=== PATIENT | male | born 1945 | race Caucasian/White ===

== ENCOUNTER 2022-09-26 08:17 | Outpatient (CLI) | payer OTHER, SELFPAY ==
[2022-09-26 14:42] LABS: Microalbumin Urine 3 mg/dL
[2022-09-26 14:44] LABS: Creatinine Urine 136.8 mg/dL; Microalbumin Creatinine Ratio 20 mg/g (0-30)
[2022-09-26 15:45] LABS: Chloride* 108 mmol/L (96-114)
[2022-09-26 15:46] LABS: Albumin* 3.8 g/dL (3.3-5.0); Potassium* 4.1 mmol/L (3.6-5.1); Sodium* 141 mmol/L (135-149)
[2022-09-26 15:48] LABS: Carbon Dioxide* 26 mmol/L (20-32); Cholesterol* 112 mg/dL (90-199)
[2022-09-26 15:49] LABS: Alanine Aminotransferase* 28 U/L (4-50); Alkaline Phosphatase* 66 U/L (40-150); Aspartate Amino Transferase* 25 U/L (12-35); Bilirubin Total* 0.6 mg/dL (0.1-1.5); Blood Urea Nitrogen* 18 mg/dL (7-30); Calcium* 8.7 mg/dL (8.4-10.6); Creatinine* 0.8 mg/dL (0.5-1.5); Estimated Glomerular Filt Rate 91 ml/min; Glucose* 147 mg/dL (60-115); Total Protein* 6.6 g/dL (6.0-8.3); Triglycerides* 113 mg/dL (40-149)
[2022-09-26 15:50] LABS: HDL Cholesterol* 40 mg/dL (>=40); LDL Cholesterol Calculated 49 mg/dL (<100)
[2022-09-26 16:19] LABS: PSA Screen* 0.69 ng/mL (0.10-4.00)
== END 2022-09-26 08:18 | disposition home or self-care (01) ==
PROVIDERS: PCP Family Medicine; Visit Provider Family Medicine
DX: Z00.00 Encounter for general adult medical examination without abnormal findings (principal); E11.9 Type 2 diabetes mellitus without complications; E78.5 Hyperlipidemia, unspecified; I10 Essential (primary) hypertension
CPT/HCPCS: 80053; 80061; 82043; 82570; 84153

== ENCOUNTER 2022-11-18 14:44 | Outpatient (CLI) | payer OTHER, SELFPAY | END 2022-11-18 14:45 | disposition home or self-care (01) | LOC: RAD 14:46 | PROVIDERS: PCP Family Medicine; Visit Provider Internal Medicine | DX: I51.7 Cardiomegaly (principal) | CPT/HCPCS: 93306 ==

== ENCOUNTER 2022-12-23 13:37 | Outpatient (CLI) | payer OTHER, SELFPAY ==
--- NOTE | 2022-12-23 14:00 | CRLHL7_ITS ---
For Patients: As a result of the Century Cures Act, medical imaging exams and procedure reports are released immediately into your electronic medical record. You may view this report before your referring provider. If you have questions, please contact your health care provider. INDICATION: acute onset right scrotal swelling COMPARISON: none TECHNIQUE: Greco scale imaging was performed of the scrotum. In addition color Doppler and spectral Doppler analysis was performed of the testes. FINDINGS: The testes demonstrate normal arterial and venous blood flow on color Doppler and spectral Doppler analysis. The testes have uniform echogenicity with no evidence of a suspicious mass or area of inflammation. The right testis measures 4.1 x 1.5 x 2.6 cm in size and the left testis measures 3.7 x 1.4 x 2.4 cm. Epididymal head cysts are present bilaterally measuring 1.1 x 0.6 x 1.4 cm on the right and 1.8 x 0.5 x 1.2 cm on the left. No varicocele. Small bilateral hydroceles. IMPRESSION: No testicular torsion or testicular mass. Epididymal head cysts. Small hydroceles. Dictated by Rajinder Ahuja MD @ 12/24/2022 8:51:11 AM (Electronically Signed)
== END 2022-12-23 13:38 | disposition home or self-care (01) ==
PROVIDERS: PCP Family Medicine; Visit Provider Family Medicine
DX: N50.89 Other specified disorders of the male genital organs (principal); N50.3 Cyst of epididymis; N43.3 Hydrocele, unspecified
CPT/HCPCS: 76870; 93976

== ENCOUNTER 2023-03-24 08:44 | Outpatient (CLI) | payer OTHER, SELFPAY | END 2023-03-24 08:45 | disposition home or self-care (01) | LOC: NFLDREF 16:51 | PROVIDERS: PCP Family Medicine; Referring Provider Family Medicine; Visit Provider Family Medicine | DX: Z00.00 Encounter for general adult medical examination without abnormal findings (principal); I10 Essential (primary) hypertension; E11.9 Type 2 diabetes mellitus without complications | CPT/HCPCS: 80048 ==

== ENCOUNTER 2023-10-14 08:05 | Outpatient (CLI) | payer OTHER, SELFPAY | END 2023-10-14 08:06 | disposition home or self-care (01) | LOC: LKVREF 08:06 | PROVIDERS: PCP Family Medicine; Visit Provider Family Medicine | DX: Z00.00 Encounter for general adult medical examination without abnormal findings (principal); E11.9 Type 2 diabetes mellitus without complications; I10 Essential (primary) hypertension; E78.5 Hyperlipidemia, unspecified; Z12.5 Encounter for screening for malignant neoplasm of prostate; R73.09 Other abnormal glucose | CPT/HCPCS: 80053; 80061; 82043; 82570; G0103 ==

== ENCOUNTER 2024-04-02 07:58 | Emergency (ER) | payer OTHER, SELFPAY ==
[2024-04-02] VITALS (44 sets, daily range): BP systolic 129–167; BP diastolic 75–106; PULSE 56–68; RESP 18–20; TEMP 36.4; O2SAT 91–96; BMI 32.3
--- OUTSIDE RECORDS SUMMARY | 2024-04-02 08:53 | XMS_ITS | Referral Summary ---
Author Organization [place] Address [address] [place] [address] Care Team Providers Care Alumina Plant Supervisor Name Role Phone Ritchie Mcfadden MD Primary Care Provider [phone] Allergies No known active allergies Medications Medication Sig Dispensed Refills Start Date End Date Status ASPIRIN PO Take 81 mg by mouth At Bedtime Active timolol (TIMOPTIC) 0.5 % ophthalmic solution Place 1 drop Into the left eye daily Active AMLODIPINE BESYLATE PO Take 10 mg by mouth daily Active Carvedilol (COREG PO) Take 3.125 mg by mouth 2 times daily Active SIMVASTATIN PO Take 20 mg by mouth At Bedtime Active LOSARTAN POTASSIUM PO Take 100 mg by mouth At Bedtime Active FINASTERIDE PO Take 5 mg by mouth At Bedtime Active blood glucose calibration (NO BRAND SPECIFIED) solutionIndications:T ype 2 diabetes mellitus with hyperosmolarity without coma, unspecified termite helper insulin use status Use to calibrate blood glucose monitor as directed. 1 each 02/20/2018 Active blood glucose monitoring (NO BRAND SPECIFIED) meter device kitIndications:Type 2 diabetes mellitus with hyperosmolarity without coma, unspecified mcc insulin use status Use to test blood sugar 4 times daily or as directed. 1 kit 02/20/2018 Active blood glucose (NO BRAND SPECIFIED) lancets standardIndications:T ype 2 diabetes mellitus with hyperosmolarity without coma, unspecified mcc insulin use status Use to test blood sugar 4 times daily or as directed. 100 each 11 02/20/2018 Active blood glucose monitoring (NO BRAND SPECIFIED) test stripIndications:Type 2 diabetes mellitus with hyperosmolarity without coma, unspecified mcc insulin use status Use to test blood sugars 4 times daily or as directed 100 strip 1 02/20/2018 Active hydrochlorothiazide (MICROZIDE) 12.5 MG capsuleIndications:Be nign essential hypertension Take 1 capsule (12.5 mg) by mouth daily 30 capsule 02/21/2018 Active insulin glargine (LANTUS SOLOSTAR) 100 UNIT/ML penIndications:Type 2 diabetes mellitus with hyperosmolarity without coma, unspecified mcc insulin use status Inject 15 Units Subcutaneous At Bedtime 3 mL 02/21/2018 Active Active Problems Problem Noted Date Diagnosed Date Dizziness 02/20/2018 Social History Tobacco Use Types Packs/Day Years Used Date Smoking Tobacco: Never Alcohol Use Standard Drinks/Week Comments No 0 (1 standard drink = 0.6 oz pur e alcohol) Adolescent Education Answer Date Record ed Getting School Help Needed Not on file 07/27 Sex and Gender Information Value Date Recorded Sex Assigned at Not on file Gender Identity Not on file Sexual Orientation Not on file Last Filed Vital Signs Vital Sign Reading Time Taken Comments Blood Pressure 166/81 02/21/2018 9:05 AM CDT Pulse 72 02/20/2018 11:36 AM CDT Temperature 36.3 ??C (97.3 ??F) 02/21/2018 9:05 AM CD T Respiratory Rate 14 02/21/2018 9:05 AM CDT Oxygen Saturation 95% 02/21/2018 9:05 AM CDT Inhaled Oxygen Concentration - - Weight 113.3 kg (249 lb 11.2 oz) 02/20/2018 5:26 PM CDT Height 182.9 cm (6') 02/20/2018 5:26 PM CDT Body Mass Index 33.87 02/20/2018 5:26 PM CDT Plan of Treatment Not on file Procedures Procedure Name Priority Date/Time Associated Diagnosis Comments BASIC METABOLIC PANEL Routine 02/21/2018 6:12 AM CDT Type 2 diabetes mellitus with hyperosmolarity without coma, unspecified termite helper insulin use status (H) COLONOSCOPY - HIM SCAN Routine 11/18/2016 from Last 3 Months or Most Recently Relevant to Health Maintenance Results * (ABNORMAL) Basic metabolic panel (02/21/2018 6:12 AM CDT) Sodium 141 133 - 144 mmol/L 02/21/2018 6:45 AM CDT [facility] Potassium 3.6 3.4 - 5.3 mmol/L 02/21/2018 6:45 AM T [facility] Chloride 109 94 - 109 mmol/L 02/21/2018 6:[address] [facility] Carbon Dioxide 26 20 - 32 mmol/L 02/21/2018 6:[address] [facility] Anion Gap 6 3 - 14 mmol/L 02/21/2018 6:[address] [facility] Glucose 188(H) 70 - 99 mg/dL 02/21/2018 6:45 AM T [facility] Urea Nitrogen 14 7 - 30 mg/dL 02/21/2018 6:[address] [facility] Creatinine 0.86 0.66 - 1.25 mg/dL 02/21/2018 6:[address] [facility] GFR Estimate 88 >60 mL/min/1.7 m2 02/21/2018 6:[address] [facility] Comment:Non GFR Calc GFR Estimate If Black >90 >60 mL/min/1.7 m2 02/21/2018 6:[address] [facility] Comment: GFR Calc Calcium 8.1(L) 8.5 - 10.1 mg/dL 02/21/2018 6:[address] [facility] Blood specimen (specimen) 02/21/2018 6:12 AM CDT 02/21/2018 6:20 AM CDT Isabella Chavez MD LAB - BLOOD ORDERABL ES [facility] [address], [place] [address], [facility] [phone] * Colonoscopy - HIM Scan (11/18/2016) Narrative Chauncey Patiño - 11/18/[address] [facility] PROGRESS NOTE/CLINIC NOTE Provider Outside PROCEDURES from Last 3 Months or Most Recently Relevant to Health Maintenance Advance Directives For more information, please contact: [phone] * Full Code (Latest Code Status on File) Date Activated Date Inactivated Comments 02/20/2018 5:38 PM 02/21/2018 7:58 PM Care Teams Alumina Plant Supervisor Relationship Specialty Start Date End Date Ritchie Mcfadden MD PCP - General Family Practice 02/21/18
--- OUTSIDE RECORDS SUMMARY | 2024-04-02 08:53 | XMS_ITS | Data Portability ---
Author Organization [facility], [facility] Address [address] [place] [address] Care Team Providers Care Javascript Engineer Name Role Phone MIRIAM MCFADDEN Primary Care Provider Assessment Encounter Date Assessment Date Assessment LastModified by Organization Details LastModified Time 04/22/2023 04/22/2023 77 year old male with small bilateral hydroceles and bilateral epididymal cysts. [email or web address] Not available 04/22/2023 13:50:26 Plan of Treatment Reminders Order Date Submit Date Provider Last Modified By Organization Details Last Modified Time Details Appointments None recorded. Lab urinalysis , dipstick 2022 023 [facility], [address], [address], [place], [address], 17:21:01 Referral None recorded. Procedures None recorded. Surgeries None recorded. Imaging None recorded. Medication Orders None recorded. Patient TargetsNo targets recorded. Patient Instructions Encounter Date Encounter Id Patient Instructions Last Modified By Organization Details Last Modified Time 04/22/2023 [id number] Hydroceles: We discussed the natural history of a non-communicating hydrocele. We discussed options for management including observation, percutaneous aspiration, and surgical removal. We did touch on percutaneous aspiration which is a reasonable option for some men with competing co-morbidities who do not wish to have formal removal. This includes a small risk for bleeding and infection, but an almost assured risk of recurrence within a few months. We covered the risks of hydrocelectomy including bleeding with scrotal hematoma formation, infection, wound complications, injury to surrounding structures (spermatic vessels/vas deferens/epididymi s/testis), anesthetic risks (DVT/PE/CVA/SD), and recurrence. He will plan to monitor for now but if he changes his mind he will contact me to schedule hydrocelectomy. [email or web address] Not available 04/22/2023 14:25:15 Reason for Referral None Reported. Results Created Date Observation Date Name Description Value Unit Range Abnormal Flag LastModifiedBy Organization Detail LastModifiedTime 04/22/20 23 04/22/2023 UA WITHO UT MICRO - CS URISC AN blood - uriscan NEGATI VE negati ve Not Available [facility] [address] [facility] [address], [place], [address], 04/22/2023 17:21:01 04/22/20 23 04/22/2023 UA WITHO UT MICRO - CS URISC AN bilirubin - uriscan NEGATI VE mg/dL negati ve Not Available [facility] [address] [facility] [address], [place], [address], 04/22/2023 17:21:01 04/22/20 23 04/22/2023 UA WITHO UT MICRO - CS URISC AN urobilinogen - uriscan NORMAL mg/dL normal Not Available [facility] [address] [facility] [address], [place], [address], 04/22/2023 17:21:01 04/22/20 23 04/22/2023 UA WITHO UT MICRO - CS URISC AN ketones - uriscan 5 mg/dL negati ve abnormal Not Available [facility] [address] [facility] [address], [place], [address], 04/22/2023 17:21:01 04/22/20 23 04/22/2023 UA WITHO UT MICRO - CS URISC AN protein - uriscan NEGATI VE mg/dL negati ve Not Available [facility] [address] [facility] [address], [place], [address], 04/22/2023 17:21:01 04/22/20 23 04/22/2023 UA WITHO UT MICRO - CS URISC AN nitrites - uriscan NEGATI VE negati ve Not Available [facility] [address] [facility] [address], [place], [address], 04/22/2023 17:21:01 04/22/20 23 04/22/2023 UA WITHO UT MICRO - CS URISC AN glucose - uriscan NEGATI VE mg/dL negati ve Not Available [facility] [address] [facility] [address], [place], [address], 04/22/2023 17:21:01 04/22/20 23 04/22/2023 UA WITHO UT MICRO - CS URISC AN pH - uriscan 5.00 5.00-9 .00 Not Available [facility] [address] [facility] [address], [place], [address], 04/22/2023 17:21:01 04/22/20 23 04/22/2023 UA WITHO UT MICRO - CS URISC AN sp. gravity - uriscan 1.03 1.01-1 .03 Not Available [facility] [address] [place] [address], [place], [address], 04/22/2023 17:21:01 04/22/20 23 04/22/2023 UA WITHO UT MICRO - CS URISC AN leukocytes - uriscan NEGATI VE negati ve Not Available [facility] [address] [place] [address], [place], [address], 04/22/2023 17:21:01 04/22/20 23 04/22/2023 UA WITHO UT MICRO - CS URISC AN color - uriscan YELLOW lt. yellow ;yello w Not Available [facility] [address] [place] [address], [place], [address], 04/22/2023 17:21:01 04/22/20 23 04/22/2023 UA WITHO UT MICRO - CS URISC AN clarity - uriscan VERY CLOUDY clear abnormal Not Available [facility] [address] [facility] [address], [place], [address], 04/22/2023 17:21:01 04/22/20 23 04/22/2023 UA WITHO UT MICRO - CS URISC AN total urine volume (mL) 20 /mL Not Available [facility] [address], [place], [address], 04/22/2023 17:21:01 Result Notes None recorded. Medical Equipment None Reported. Medications Name Sig Start Date Stop Date Status Note LastModified by Organization Details LastModified Time carvedilol 6.25 mg tablet TAKE 1 TABLET BY MOUTH TWICE DAILY . APPOINTMENT REQUIRED FOR FUTURE REFILLS active Not Available Not Available No t Available amlodipine 10 mg tablet TAKE 1/2 (ONE-HALF) TABLET BY MOUTH ONCE DAILY active Not Available Not Available No t Available nystatin 100,000 unit/gram topical cream APPLY CREAM TOPICALLY 2 TO 3 TIMES A DAY NEEDED FOR RASH active Not Available Not Available No t Available timolol maleate 0.5 % eye drops INSTILL 1 DROP INTO LEFT EYE IN THE MORNING active Not Available Not Available Not Available losartan 100 mg tablet TAKE 1 TABLET BY MOUTH ONCE DAILY active Not Available Not Available No t Available metformin ER 500 mg tablet,exten ded release 24 hr TAKE 1 TABLET BY MOUTH ONCE DAILY active Not Available Not Available No t Available finasteride 5 mg tablet TAKE 1 TABLET BY MOUTH ONCE DAILY active Not Available Not Available No t Available rosuvastatin 10 mg tablet TAKE 1 TABLET BY MOUTH ONCE DAILY active Not Available Not Available No t Available UltiCare Pen Needle 31 gauge x 5/16 USE TO TEST ONCE DAILY active Not Available Not Available N ot Available Lantus Solostar U-100 Insulin 100 unit/mL (3 mL) subcutaneous pen INJECT 8 UNITS SUBCUTANEOU SLY IN THE EVENING active Not Available Not Available No t Available Vitals None Recorded Social History None recorded. Functional Status None recorded. Mental Status None recorded. Family History Nothing Reported. Medical History No medical history recorded. Immunizations Vaccine Type Date Status Provider Name and Address Organization Details Recorded Time Influenza, recombinant, quadrivalent, PF 07/15/2019 completed [place] Ne[facility] 05/07/2023 15:22:36 Influenza, high-dose, quadrivalent, PF 07/15/2022 completed [place] [facility] 05/07/2023 15:22:36 Influenza, high-dose, quadrivalent, PF 07/26/2020 completed Rachael Ramirez null, [facility] 05/07/2023 15:22:36 Influenza, high-dose, quadrivalent, PF 07/30/2021 completed Rachael Ramirez null, [facility] 05/07/2023 15:22:36 COVID-19, mRNA, LNP-S, PF, 30 mcg/0.3 mL dose 11/09/2020 completed Rachael Ramirez null, [facility] 05/07/2023 15:22:36 COVID-19, mRNA, LNP-S, PF, 30 mcg/0.3 mL dose 11/30/2020 completed Rachael Ramirez null, [facility] 05/07/2023 15:22:36 COVID-19, mRNA, LNP-S, PF, 30 mcg/0.3 mL dose 07/17/2021 completed Rachael Charlesand null, [facility] 05/07/2023 15:22:36 COVID-19, mRNA, LNP-S, PF, 30 mcg/0.3 mL dose, fina-sucrose 02/06/2022 completed Rachael Ramirez null, [facility] 05/07/2023 15:22:36 COVID-19, mRNA, LNP-S, bivalent, PF, 30 mcg/0.3 mL dose 03/28/2023 completed Rachael Ramirez null, [facility] 05/07/2023 15:22:36 COVID-19, mRNA, LNP-S, bivalent, PF, 30 mcg/0.3 mL dose 07/15/2022 completed Rachael Ramirez null, [facility] 05/07/2023 15:22:36 pneumococcal polysaccharide PPV23 06/01/2018 completed Rachael Ramirez null, [facility] 05/07/2023 15:22:36 Tdap 11/04/2017 completed Rachael Ramirez null, [facility] 05/07/2023 15:22:36 Pneumococcal conjugate PCV 13 03/23/2015 completed Rachael Ramirez null, [facility] 05/07/2023 15:22:36 Influenza, high-dose, trivalent, PF 06/30/2017 completed Rachael blood [facility] 05/07/2023 15:22:36 Influenza, high-dose, trivalent, PF 07/21/2018 completed Rachael blood [facility] 05/07/2023 15:22:36 Influenza, high-dose, trivalent, PF 08/03/2015 completed Rachael blood [facility] 05/07/2023 15:22:36 Influenza, high-dose, trivalent, PF 08/27/2016 completed Rachael blood [facility] 05/07/2023 15:22:36 Past Encounters Encounter ID Performer Location Encounter Start Date Encounter Closed Date Diagnosis/Indication Diagnosis SNOMED-CT Code [id number] Tera Amin MD [facility] [address] [place] [address] 04/22/2023 08:40:17 04/22/2023 14:44:26 Hydrocele of testis [id number] Cyst of epididymis 29241 002 Health Concerns Section Related Observation LastModified by Organization Detai ls LastModified Time None Recorded Concern Status LastModified by Organization Details LastModified Time None Recorded Advance Directives Directive None Recorded Payers Encounter Date Sequence Insurance Name Policy Number Policy Hough Covered Member ID Hough Member ID Guarantor Name 04/22/2023 1 [employer] - GOLD CHOICE (MEDICARE REPLACEMENT PPO) [id number] Adryan Gamble [id number] Adryan Gamble Notes Date Note Type Note Provider Name and Address Organization Details Recorded Time 04/22/2023 text/html HPI Notes: This is a 77 year old male who is referred by Dr. Mcfadden for the evaluation and management of scrotal swelling. In December of 2022 he developed new onset right sided scrotal swelling. He underwent a scrotal ultrasound on 12/23/2022 which revealed small bilateral hydroceles and bilateral epididymal cysts measuring up to 1.4 cm on the right and 1.8 cm on the left. He isn't overtly bothered by this. He actually feels this has gotten a bit smaller. Tera Amin MD [address] [place] [address],[address], [place], [address], [facility] 04/22/2023 14:25:21
--- OUTSIDE RECORDS SUMMARY | 2024-04-02 08:53 | XMS_ITS | Clinical Summary ---
Author Organization [place] Address [address] [place] [address] Care Team Providers Care Stitch Bonding Machine Tender Helper Name Role Phone Ritchie Mcfadden MD Primary Care Provider [phone] Allergies No known active allergies Medications Medication [...] diabetes mellitus with hyperosmolarity without coma, unspecified ferry terminal supervisor insulin use status Use to calibrate blood glucose monitor as directed. 1 each 02/20/2018 Active blood glucose monitoring (NO BRAND SPECIFIED) meter device kitIndications:Type 2 diabetes mellitus with hyperosmolarity without coma, unspecified jail insulin use status Use to test blood sugar 4 times daily or as directed. 1 kit 02/20/2018 Active blood glucose (NO BRAND SPECIFIED) lancets standardIndications:T ype 2 diabetes mellitus with hyperosmolarity without coma, unspecified jail insulin use status Use to test blood sugar 4 times daily or as directed. 100 each 11 02/20/2018 Active blood glucose monitoring (NO BRAND SPECIFIED) test stripIndications:Type 2 diabetes mellitus with hyperosmolarity without coma, unspecified jail insulin use status Use to test blood sugars 4 times daily or as directed 100 strip 1 02/20/2018 Active hydrochlorothiazide (MICROZIDE) 12.5 MG capsuleIndications:Be nign essential hypertension Take 1 capsule (12.5 mg) by mouth daily 30 capsule 02/21/2018 Active insulin glargine (LANTUS SOLOSTAR) 100 UNIT/ML penIndications:Type 2 diabetes mellitus with hyperosmolarity without coma, unspecified jail insulin use status Inject 15 Units Subcutaneous [...] 02/20/2018 5:26 PM CDT Plan of Treatment Health Maintenance Due Date Last Done Comments ADVANCE CARE PLANNING 1945 ANNUAL REVIEW OF HM ORDERS 1945 LIPID 1945 HEPATITIS C SCREENING 1963 DTAP/TDAP/TD IMMUNIZATION (1 - Tdap) 1970 ZOSTER IMMUNIZATION (1 of 2) 1995 RSV VACCINE ( & 60+) (1 - 1-dose 60+ series) 2005 FALL RISK ASSESSMENT 2010 MEDICARE ANNUAL WELLNESS VISIT 2010 Pneumococcal Vaccine: 65+ Years (2 of 2 - PPSV23 or PCV20) 03/23/2016 03/23/2015 GLUCOSE 02/21/2021 02/21/2018, 02/10, 02/21/2018, Additional history exists COVID-19 Vaccine ( season) 2023 PHQ-2 (once per calendar year) 2023 INFLUENZA VACCINE (Season Ended) 2024 06/30/2017, 08/27/2016, 08/03/2015 COLONOSCOPY Discontinued 11/18/2016, 04/2011, 01/19/2007 COLORECTAL CANCER SCREENING Discontinued CT COLONOGRAPHY Discontinued FIT Discontinued FLEX SIG Discontinued HPV IMMUNIZATION Aged Out No longer e ligible based on patient's age to complete this topic IPV IMMUNIZATION Aged Out No longer e ligible based on patient's age to complete this topic MENINGITIS IMMUNIZATION Aged Out No l onger eligible based on patient's age to complete this topic RSV MONOCLONAL ANTIBODY Aged Out No l onger eligible based on patient's age to complete this topic sDNA (Cologuard) Discontinued Procedures Procedure Name Priority Date/Time Associated Diagnosis Comments BASIC METABOLIC PANEL Routine 02/21/2018 6:12 AM CDT Type 2 diabetes mellitus with hyperosmolarity without coma, unspecified jail insulin use status (H) COLONOSCOPY - HIM SCAN Routine 11/18/2016 from Last 3 Months or Most Recently Relevant to Health Maintenance Results * (ABNORMAL) Basic metabolic panel (02/21/2018 6:12 AM CDT) Sodium 141 133 - 144 mmol/L 02/21/2018 6:45 AM [facility] Potassium 3.6 3.4 - 5.3 mmol/L 02/21/2018 6:45 AM [facility] Chloride 109 94 - 109 mmol/L 02/21/2018 6:45 AM [facility] Carbon Dioxide 26 20 - 32 mmol/L 02/21/2018 6:45 AM [facility] Anion Gap 6 3 - 14 mmol/L 02/21/2018 6:45 AM [facility] Glucose 188(H) 70 - 99 mg/dL 02/21/2018 6:45 AM [facility] Urea Nitrogen 14 7 - 30 mg/dL 02/21/2018 6:45 AM CDT [facility] Creatinine 0.86 0.66 - 1.25 mg/dL 02/21/2018 6:45 AM CDT [facility] GFR Estimate 88 >60 mL/min/1.7 m2 02/21/2018 6:45 AM CDT [facility] Comment:Non GFR Calc GFR Estimate If Black >90 >60 mL/min/1.7 m2 02/21/2018 6:45 AM CDT [facility] Comment: GFR Calc Calcium 8.1(L) 8.5 - 10.1 mg/dL 02/21/2018 6:45 AM CDT [facility] Blood specimen (specimen) 02/21/2018 6:12 AM CDT 02/21/2018 6:20 AM CDT Isabella Chavez MD LAB - BLOOD ORDERABL ES [facility] [address] [place] [address] [address], [facility] [phone] * Colonoscopy - HIM Scan (11/18/2016) Narrative Chauncey Patiño - 11/18/2016 [facility] PROGRESS NOTE/CLINIC NOTE Provider Outside PROCEDURES from Last 3 Months or Most Recently Relevant to Health Maintenance Advance Directives For more information, please contact: [phone] * Full Code (Latest Code Status on File) Date Activated Date Inactivated Comments 02/20/2018 5:38 PM 02/21/2018 7:58 PM Care Teams Stitch Bonding Machine Tender Helper Relationship Specialty Start Date End Date Ritchie Mcfadden MD PCP - General Family Practice 02/21/18
--- OUTSIDE RECORDS SUMMARY | 2024-04-02 08:53 | XMS_ITS | Clinical Summary ---
Author Organization [facility] Address [place], [place] [address] Care Team Providers Care Head Resident Name Role Phone Ritchie Mcfadden MD Primary Care Provider Allergies No known active allergies Medications Medication Sig Dispensed Refills Start Date End Date Status aspirin (ECOTRIN) 81 mg enteric coated tabletIndications:Hy pertension Take 1 tablet by mouth once daily with a meal. 0 05/12/2019 Active losartan (COZAAR) 100 mg tabletIndications:Hy pertension Take 1 tablet by mouth once daily. 0 05/12/2019 Active carvediloL (COREG) 6.25 mg tabletIndications:Hy pertension Take 1.5 tablets by mouth 2 times daily with meals. 270 tablet 05/26/2020 Active amLODIPine (NORVASC) 10 mg tabletIndications:Hy pertension Take 0.5 Tablets (5 mg) by mouth once daily. 0 12/13/2022 Active Active Problems Problem Noted Date Diagnosed Date History of colon polyps 11/18/2016 Overview: Colonoscopy 11/2016 polyp repeat in 5 years Immunizations Name Administration Dates Next Due COVID-19 vaccine ([employer] NTUCT Coatings 30mcg/0.3mL) DONALD VAZQUEZ 07/17/2021,11/30/2020,11/09/2020 Social History Tobacco Use Types Packs/Day Years Used Date Smoking Tobacco: Never Assessed Social Connections Answer Date Recorded Frequency of Communication with Friends and Fami ly Not on file 11/23/2021 Financial Resource Strain Answer Date R ecorded Difficulty of Paying Living Expenses Not on file 11/23/2021 Difficulty of Paying Living Expenses Not on file 11/23/2021 Sex and Gender Information Value Date Recorded Sex Assigned at Not on file Gender Identity Not on file Sexual Orientation Not on file Obstetrics History Plan of Treatment Health Maintenance Due Date Last Done Comments Tdap 1956 Depression screening for age 12+ 1957 BMI (ht and wt on same day) for age 18+ 1963 Hepatitis C screening for ag e 18-79 1963 Tetanus booster 1965 Zoster (shingles) series for age 50+ (1 of 2) 1995 Medicare Wellness for age 65+ 2010 Pneumococcal series for age 65+ (1 of 1 - PCV) 2010 COVID-19 vaccine series (2022- season) 2023 03/28/2023, 07/15/2022, 02/06/2022, Additional history exists Influenza for age 65+ 2024 Care Teams Head Resident Relationship Specialty Start Date End Date Ritchie Mcfadden MD [id number] [place] [address] PCP - General Family Practice 09/17/21
[2024-04-02 08:54] LABS: Basophils Absolute Auto 0.02 K/uL (0.00-0.30); Basophils Percent Auto 0.3 % (0.0-3.0); Eosinophils Percent Auto 1.4 % (0.0-7.0); Hematocrit 48.3 % (37.0-53.0); Hemoglobin* 15.7 gm/dL (13.5-17.5); Immature Granulocytes Abs Auto 0.01 K/uL (0.00-0.30); Immature Granulocytes Pct Auto 0.1 %; Lymphocytes Absolute Auto 1.76 K/uL (0.90-2.90); Lymphocytes Percent Auto 24.2 % (20-44); Mean Corpuscular HGB Conc 33 gm/dL (32-36); Mean Corpuscular Hemoglobin 29 pg (26-34); Mean Corpuscular Volume 89 fL (80-100); Monocytes Percent Auto 8.7 % (0.0-11.0); Neutrophils Absolute Auto 4.76 K/uL (1.7-7.0); Neutrophils Percent Auto 65.3 % (42.0-72.0); Platelet Count* 202 K/uL (140-440); RDW Coefficient of Variation % 12.6 % (11.5-15.5); Red Blood Count 5.43 m/uL (4.30-5.90); White Blood Count* 7.28 K/uL (4.50-11.00)
[2024-04-02 09:04] LABS: Slide Review Reflex No
[2024-04-02 09:05] LABS: Albumin* 3.9 g/dL (3.3-5.0); Chloride* 102 mmol/L (96-114)
[2024-04-02 09:06] LABS: Potassium* 3.8 mmol/L (3.6-5.1); Sodium* 137 mmol/L (135-149)
[2024-04-02 09:08] LABS: Anion Gap 6 mEq/L (7-15); Aspartate Amino Transferase* 29 U/L (12-35); Bilirubin Total* 0.8 mg/dL (0.1-1.5); Carbon Dioxide* 29 mmol/L (20-32); Creatinine* 0.8 mg/dL (0.5-1.5); Est. Creatinine Clearance* 66.82; Estimated Glomerular Filt Rate 91 ml/min
[2024-04-02 09:09] LABS: Alanine Aminotransferase* 36 U/L (4-50); Alkaline Phosphatase* 63 U/L (40-150); Blood Urea Nitrogen* 17 mg/dL (7-30); Glucose* 339 mg/dL (60-115); Magnesium* 2.1 mg/dL (1.5-2.6); Total Protein* 6.9 g/dL (6.0-8.3)
[2024-04-02 09:19] LABS: D Dimer Quantitative* < 0.27 ug/ml (0.00-0.50)
[2024-04-02 09:27] LABS: NT Pro B Type NatriureticPept* 345 pg/mL; Troponin I* 0.26 ng/mL (0.01-0.04)
[2024-04-02] MEDS: NITROGLYCERIN 0.4 MG TAB.SUBL SUBLINGUAL ×2 (09:29→09:41)
--- NOTE | 2024-04-02 09:30 | CRLHL7_ITS ---
For Patients: As a result of the Century Cures Act, medical imaging exams and procedure reports are released immediately into your electronic medical record. You may view this report before your referring provider. If you have questions, please contact your health care provider. INDICATION: Left-sided chest pain. Concern for pneumonia. COMPARISON: None TECHNIQUE: : CT examination of the chest was performed without contrast.Thin axial sections were obtained from the thoracic inlet through the lung bases. Please note that all CT scans at this facility use dose modulation, iterative reconstruction, and/or weight-based dosing when appropriate to reduce radiation dose to as low as reasonably achievable. FINDINGS: : HEART and MEDIASTINUM: The heart size is normal. There is no mediastinal or hilar adenopathy or mass. There is no pericardial effusion.Atherosclerotic vascular calcifications are noted including the coronary arteries. LUNGS and PLEURAL SPACES: Primarily linear opacities are identified. These certainly basilar distribution and probably related to atelectasis or scarring. No focal consolidation, infiltrate or mass. A few tiny nodules are identified. The largest is at the medial right base. This is best seen on axial image 44 and sagittal image 72 measuring 5.5 millimeters.According to Fleischner society criteria, a 12 month follow-up noncontrast chest CT should be considered. VISUALIZED UPPER ABDOMEN: The limited visualized upper abdominal structures appear normal. OSSEOUS STRUCTURES: Age-appropriate appearance. No acute fracture or destructive process. TUBES and LINES: None. IMPRESSION: 1. Primarily linear opacities are identified. These are in a basilar distribution and consistent with atelectasis or scarring. No focal consolidation, infiltrate or mass. No pleural effusion or pneumothorax. No chest wall abnormality. 2. There is a 5.5 millimeter nodule. Consider a 12 month follow-up noncontrast chest CT as per Fleischner society protocol. 3. Other nonacute appearing findings as above Please note that all CT scans at this facility use dose modulation, iterative reconstruction, and/or weight-based dosing when appropriate to reduce radiation dose to as low as reasonably achievable. Dictated by Krishna Aparicio MD @ 04/02/2024 10:22:23 AM (Electronically Signed)
[2024-04-02 09:36] LABS: PCR FLU A Negative PCR FLU A (Negative); PCR FLU B Negative PCR FLU B (Negative); PCR RSV Negative PCR RSV (Negative); SARS PCR* Negative SARS-CoV-2 (Negative)
--- NOTE | 2024-04-02 09:41 | ED.CHESTPAIN ---
HPI - Chest Pain General Date Seen: 04/02/24 Chief Complaint: Chest Pain Stated Complaint: Chest pain Time Seen by Provider: 04/02/24 08:06 Source: patient Mode of arrival: ambulatory Limitations: no limitations History of Present Illness HPI narrative: Patient is a 78-year-old male with a history of diabetes, hyperlipidemia, hypertension presenting to the emergency department for left-sided chest pain. He states chest pain started last night at midnight. Has been persistent ever since and describes it as a 6/10 throbbing pain that does not worsen with deep breaths. States he has had this symptoms in the past a few years ago when he was transferred to [facility] for bacterial pneumonia that required a hospital stay of about 12 days. States initially was having pain yesterday says relatively mild and then it went away. At about midnight when he was watching TV he suddenly had more intense pain. He took a shower at about 03:00 any says that relieved the pain but came back again after he ate at about 06:00. Denies fevers, chills, weakness, numbness, headache, vision changes, diarrhea, constipation. Had an echo done last year that did not show any significant concerns. Has not had a cardiac catheter done and does not have any stents. No other heart disease that he is aware of. Nothing seems to make the pain better or worse. Denies smoking history. Related Data Home Medications ?Medication ?Instructions ?Recorded ?Confirmed aspirin 81 mg chewable tablet 1 tab PO .Every 48 Hours 03/26/23 04/02/24 timolol maleate 0.5 % eye drops drp ophthalmic (eye) 04/16/23 10/14/23 Previous Rx's ?Medication ?Instructions ?Recorded nystatin 100,000 unit/gram topical 1 applic topical .2-3X/Day PRN 09/26/22 cream rash #30 grams carvedilol 6.25 mg tablet 6.25 mg PO BID #180 tabs 07/07/23 amlodipine 10 mg tablet 5 mg (1/2 x 10 mg) PO QDAY #45 tabs 10/14/23 losartan 100 mg tablet 100 mg PO QDAY #90 tabs 11/10/23 pen needle, diabetic 31 gauge x #100 ea 12/22/2302/25 (UltiCare Pen Needle) rosuvastatin 10 mg tablet 10 mg PO QDAY #90 tabs 12/31/23 finasteride 5 mg tablet 5 mg PO QDAY #90 tabs 03/12/24 insulin glargine 100 unit/mL (3 8 unit (0.08 mL) subcut QPM #15 mL 03/30/24 mL) subcutaneous pen (Lantus Solostar U-100 Insulin) Allergies Allergy/AdvReac Type Severity Reaction Status Date / Time No Known Allergies Allergy Unknown Unknown Verified 04/02/24 08:10 Review of Systems Status of ROS Reports: 10 or more systems reviewed and unremarkable except as noted in History and below [facility] Medical History Medicare annual wellness visit, subsequent ?Z00.00 - Encounter for general adult medical examination without abnormal findings (ICD-10) Actinic keratosis ?L57.0 - Actinic keratosis (ICD-10) BPH associated with nocturia ?N40.1 - Benign prostatic hyperplasia with lower urinary tract symptoms (ICD-10) ?R35.1 - Nocturia (ICD-10) Surgical History History of incision and drainage (08/06/15) ?Z98.890 - Other specified postprocedural states (ICD-10) History of colonoscopy with polypectomy ?Z98.890 - Other specified postprocedural states (ICD-10) ?Z86.010 - Personal history of colonic polyps (ICD-10) History of colonoscopy ?Z98.890 - Other specified postprocedural states (ICD-10) Social History Smoking Status: Never smoker How often do you have a drink containing alcohol: never AUDIT-C Alcohol total score: 0 Non-prescribed substance use: denies use Exam Narrative Exam Narrative: Const: Well-nourished, Well-developed, in mild distress Eyes: PERRL, no conjunctival injection, and symmetrical lids HENT: Atraumatic external nose and ears. Moist mucous membranes. Neck: Symmetric, trachea midline, No thyromegaly. CVS: RRR, No murmurs or gallops. Peripheral pulses 2+ and equal in all extremities RESP: Unlabored respiratory effort. Clear to auscultation bilaterally. GI: Nontender/Nondistended, No rebound or guarding. MSK:Extremities w/o deformity, Normal Active ROM, chest nontender Skin: Warm, Dry. No rashes or lesions. Neuro: Normal Muscle tone, No focal neurological deficits. Psych: Awake, Alert, & Oriented x3. Appropriate mood and affect. Const Vital Signs, click to edit/add: Vital Signs - 24 hr 04/02/24 08:10 04/02/24 08:39 04/02/24 09:00 Temperature 97.6 F Pulse Rate 66 61 Pulse Rate [Pulse Oximeter] 68 Respiratory Rate 20 Blood Pressure Blood Pressure [Left Upper Arm] 159/81 H Pulse Oximetry 94 93 95 Oxygen Delivery Method Room Air 04/02/24 09:02 04/02/24 09:03 04/02/24 09:30 Temperature Pulse Rate 59 L 62 60 Pulse Rate [Pulse Oximeter] Respiratory Rate Blood Pressure 150/84 H 161/88 H Blood Pressure [Left Upper Arm] Pulse Oximetry 94 95 94 Oxygen Delivery Method 04/02/24 09:31 04/02/24 09:32 04/02/24 09:41 Temperature Pulse Rate 60 59 L 65 Pulse Rate [Pulse Oximeter] Respiratory Rate Blood Pressure 167/84 H 152/92 H Blood Pressure [Left Upper Arm] Pulse Oximetry 96 93 93 Oxygen Delivery Method 04/02/24 09:48 04/02/24 10:01 04/02/24 10:03 Temperature Pulse Rate 59 L 62 Pulse Rate [Pulse Oximeter] Respiratory Rate Blood Pressure 134/82 159/106 H Blood Pressure [Left Upper Arm] Pulse Oximetry 91 94 Oxygen Delivery Method 04/02/24 10:04 04/02/24 10:30 04/02/24 10:32 Temperature Pulse Rate 60 59 L 61 Pulse Rate [Pulse Oximeter] Respiratory Rate Blood Pressure 160/83 H Blood Pressure [Left Upper Arm] Pulse Oximetry 93 93 94 Oxygen Delivery Method 04/02/24 10:47 04/02/24 10:53 04/02/24 11:00 Temperature Pulse Rate 60 59 L 58 L Pulse Rate [Pulse Oximeter] Respiratory Rate Blood Pressure 135/95 H 143/87 H Blood Pressure [Left Upper Arm] Pulse Oximetry 95 94 92 Oxygen Delivery Method 04/02/24 11:02 04/02/24 11:12 04/02/24 11:22 Temperature Pulse Rate 58 L 59 L 60 Pulse Rate [Pulse Oximeter] Respiratory Rate Blood Pressure 156/94 H 153/87 H 153/97 H Blood Pressure [Left Upper Arm] Pulse Oximetry 93 91 92 Oxygen Delivery Method Course Vital Signs Vital signs: Initial Vital Signs Temperature 97.6 F 04/02/24 08:10 Temperature Source Temporal Artery Scan 04/02/24 08:10 Pulse Rate 68 04/02/24 08:10 Respiratory Rate 20 04/02/24 08:10 Respiratory Effort Normal 04/02/24 08:10 Respiratory Depth Normal 04/02/24 08:10 Respiratory Pattern Normal 04/02/24 08:10 Blood Pressure 159/81 H 04/02/24 08:10 Blood Pressure Mean 107 H 04/02/24 08:10 Blood Pressure Position Semi-Fowlers 04/02/24 08:10 Pulse Oximetry 94 04/02/24 08:10 Oxygen Delivery Method Room Air 04/02/24 08:10 Vital Signs Temperature 97.6 F 04/02/24 08:10 Pulse Rate 68 04/02/24 08:10 Respiratory Rate 20 04/02/24 08:10 Blood Pressure 159/81 H 04/02/24 08:10 Pulse Oximetry 94 04/02/24 08:10 Oxygen Delivery Method Room Air 04/02/24 08:10 Temperature 97.6 F 04/02/24 08:10 Pulse Rate 60 04/02/24 11:22 Respiratory Rate 20 04/02/24 08:10 Blood Pressure 153/97 H 04/02/24 11:22 Pulse Oximetry 92 04/02/24 11:22 Oxygen Delivery Method Room Air 04/02/24 08:10 Medications Administered Medications: Generic Name Dose Route Start Last Admin Trade Name Freq PRN Reason Stop Dose Admin Heparin Sodium/Dextrose 25,000 unit in 500 mls @ 0 mls/hr 04/02/24 10:30 04/02/24 11:40 Heparin IV 1,000 unit/hr .Q0M WILLIAM 20 mls/hr Infusion Protocol Per Protocol Nitroglycerin/Dextrose 25,000 mcg in 250 mls @ 3 mls/hr 04/02/24 10:34 04/02/24 10:47 Nitroglycerin/Dextrose IVPB 5 mcg/min .TITRATE PRN 3 mls/hr Chest Pain Infusion Protocol 5 MCG/MIN Discontinued Medications Generic Name Dose Route Start Last Admin Trade Name La PRN Reason Stop Dose Admin Heparin Sodium (Porcine) 4,000 unit 04/02/24 10:17 04/02/24 10:24 Heparin 5,000 Unit/0.5 Ml Inj IVP 04/02/24 10:18 4,000 unit ONCE ONE Administration Nitroglycerin 0.4 mg 04/02/24 09:30 04/02/24 09:29 Nitroglycerin 0.4 Mg Tab.Subl SUBLINGUAL 04/02/24 09:31 0.4 mg ONCE ONE Administration Nitroglycerin 0.4 mg 04/02/24 09:39 04/02/24 09:41 Nitroglycerin 0.4 Mg Tab.Subl SUBLINGUAL 04/02/24 09:40 0.4 mg ONCE ONE Administration MDM - Chest Pain MDM Narrative Medical decision making narrative: Patient is a 78-year-old male presenting to the emergency department for chest pain. He states this feels just like his previous pneumonia. Concerning with the pain is though I am concerned for ACS. Will order troponin, EKG, CBC, CMP, magnesium. Considering concerned about heart also do a BNP. Seems less likely but also check a D-dimer for signs of PE. Will wait and do chest x-ray as do a since seemed MS few pneumonias and would do a CT pending that D-dimer. Will also do a COVID/flu/RSV. CBC returned showing no concerning abnormalities. CMP, D-dimer, COVID/flu/RSV, BMP shows no concerning findings. His troponin is elevated 0.26. He was given nitroglycerin and pain with down to about a 2 or 3 after the 1st 1 and resolved after the 2nd 1. EKG shows sinus rhythm first-degree AV block with a bifascicular block. I cannot find any previous EKGs on file currently on [employer], but historic link for [employer], Tier 3. CT scan without contrast ordered. I reviewed the CT scan do not see any large pneumonias. [facility] was page. CT results returned with radiology's read showing some scarring and atelectasis but no acute abnormalities. I spoke to Dr. Dewey of [facility] and is in agreement with starting him on a nitro drip since his pain is coming back but will hold off on heparin until patient has 2nd troponin done. Repeat troponin came back at 0.45. His pain has again subsided with the nitro. I spoke to Dr. Dewey again who recommend starting heparin and will accept the patient for transfer to [place]. Patient is agreeable with this plan Lab Data Labs: Lab Results 04/02/24 04/02/24 04/02/24 Range/Units 08:32 08:40 10:41 WBC 7.28 (4.50-11.00) K/uL RBC 5.43 (4.30-5.90) m/uL Hgb 15.7 (13.5-17.5) gm/dL Hct 48.3 (37.0-53.0) % MCV 89 (80-100) fL MCH 29 (26-34) pg MCHC 33 (32-36) gm/dL RDW Coeff of Felicia 12.6 (11.5-15.5) % Plt Count 202 (140-440) K/uL Neut % (Auto) 65.3 (42.0-72.0) % Lymph % (Auto) 24.2 (20-44) % [place] % (Auto) 8.7 (0.0-11.0) % Eos % (Auto) 1.4 (0.0-7.0) % Baso % (Auto) 0.3 (0.0-3.0) % Neut # (Auto) 4.76 (1.7-7.0) K/uL Lymph # (Auto) 1.76 (0.90-2.90) K/uL [place] # (Auto) 0.60 (0.00-0.90) K/UL Eos # (Auto) 0.10 (0.00-0.50) K/uL Baso # (Auto) 0.02 (0.00-0.30) K/uL Abs Immat Gran (auto) 0.01 (0.00-0.30) K/uL Imm/Tot Granulo (auto) 0.1 % D-Dimer Quant (PE/DVT) < 0.27 (0.00-0.50) ug/ml Sodium 137 (135-149) mmol/L Potassium 3.8 (3.6-5.1) mmol/L Chloride 102 (96-114) mmol/L Carbon Dioxide 29 (20-32) mmol/L Anion Gap 6 L (7-15) mEq/L BUN 17 (7-30) mg/dL Creatinine 0.8 (0.5-1.5) mg/dL Estimated Creat Clear 66.82 Estimated GFR 91 ml/min Glucose 339 H (60-115) mg/dL Calcium 9.0 (8.4-10.6) mg/dL Magnesium 2.1 (1.5-2.6) mg/dL Total Bilirubin 0.8 (0.1-1.5) mg/dL AST 29 (12-35) U/L ALT 36 (4-50) U/L Alkaline Phosphatase 63 (40-150) U/L Troponin I 0.26 H* 0.45 H* (0.01-0.04) ng/mL NT-Pro-B Natriuret Pep 345 pg/mL Total Protein 6.9 (6.0-8.3) g/dL Albumin 3.9 (3.3-5.0) g/dL SARS-CoV-2 (PCR) Negative SARS-CoV-2 (Negative) Influenza Type A (PCR) Negative PCR FLU A (Negative) Influenza Type B (PCR) Negative PCR FLU B (Negative) RSV (PCR) Negative PCR RSV (Negative) Imaging Data CT scan - chest: Attestation: I have reviewed the pertinent imaging results. Radiologist's impression: 1. Primarily linear opacities are identified. These are in a basilar distribution and consistent with atelectasis or scarring. No focal consolidation, infiltrate or mass. No pleural effusion or pneumothorax. No chest wall abnormality. 2. There is a 5.5 millimeter nodule. Consider a 12 month follow-up noncontrast chest CT as per Fleischner society protocol. 3. Other nonacute appearing findings as above Please note that all CT scans at this facility use dose modulation, iterative reconstruction, and/or weight-based dosing when appropriate to reduce radiation dose to as low as reasonably achievable. Dictated by Krishna Aparicio MD @ 04/02/2024 10:22:23 AM ECG Data Attestation: I personally reviewed and interpreted this ECG as follows: Prior ECG tracings: not available for review Interpretation: Sinus rhythm with a first-degree AV block at a rate of 68 beats per minute, normal axis, no ST or T-wave abnormalities. There does appear to be a bifascicular block. Critical Care Time Critical Care Time Critical Care Time: Yes Attestation: The patient required my highest level preparedness to intervene emergently and I personally spent this critical care time directly and personally managing the patient. This critical care time included: Obtaining a history; Examining the patient; Pulse oximetry; Ordering and reviewing of studies; Arranging urgent treatment with development of a management plan; Evaluation of patients response to treatment; Frequent reassessment discussions with other providers. This critical care time was performed to assess and manage the high probability of imminent life-threatening deterioration that could result in multiorgan failure. It was exclusive of separate billable procedures and treating other patients and teaching time. Total Critical Care Time in Minutes: 35 Discharge Plan Discharge Clinical Impression: Acute non-ST elevation myocardial infarction (NSTEMI) Patient Disposition: [facility] Condition: Improved Prescriptions: No Action aspirin 81 mg tablet,chewable 1 tab PO .Every 48 Hours nystatin 100,000 unit/gram cream 1 applic topical .2-3X/Day PRN (Reason: rash) Qty: 30 1RF timolol maleate 0.5 % drops ophthalmic (eye) amlodipine 10 mg tablet 5 mg PO QDAY Qty: 45 3RF carvedilol 6.25 mg tablet 6.25 mg PO BID Qty: 180 2RF losartan 100 mg tablet 100 mg PO QDAY Qty: 90 3RF (DME) pen needle, diabetic [UltiCare Pen Needle] 31 gauge x 5/16 needle See Rx Instructions .Route Qty: 100 3RF Rx Instructions: test once daily rosuvastatin 10 mg tablet 10 mg PO QDAY Qty: 90 2RF finasteride 5 mg tablet 5 mg PO QDAY Qty: 90 1RF insulin glargine [Lantus Solostar U-100 Insulin] 100 unit/mL (3 mL) insulin pen 8 unit subcut QPM Qty: 15 0RF Follow Up/Referrals: Ritchie Mcfadden MD [Primary Care Provider] - Stand Alone Forms: [employer] Info Instructions
[2024-04-02] MEDS: HEPARIN 5,000 UNIT/0.5 ML INJ 4000 UNIT IVP (10:24)
[2024-04-02] MEDS: HEPARIN 25,000 UNIT/500 ML BAG 20 UNIT IV (10:25)
[2024-04-02] MEDS: NITROGLYCERIN/DEXTROSE 25,000 MCG/250 ML BOTTLE 3 MCG IVPB (10:42)
[2024-04-02 11:19] LABS: Troponin I* 0.45 ng/mL (0.01-0.04)
[2024-04-02 13:40] LABS: INR 0.95 (0.91-1.10); Partial Thromboplastin Time* 27 Seconds (23-33); Prothrombin Time 13.2 Seconds
== END 2024-04-02 14:59 | disposition short-term general hospital (02) ==
PROVIDERS: Emergency Provider Student in an Organized Health Care Education/Training Program; PCP Family Medicine
DX: I21.4 Non-ST elevation (NSTEMI) myocardial infarction (principal)
CPT/HCPCS: 36415; 71250; 80053; 83735; 83880; 84484; 85025; 85027; 85379; 85610; 85730; 87631; 93005; 99284; 99285; 99291; A9270; J1644

== ENCOUNTER 2024-04-02 14:45 | Outpatient (CLI) | payer OTHER, SELFPAY ==
--- OUTSIDE RECORDS SUMMARY | 2024-04-03 07:30 | XMS_ITS | Clinical Summary ---
Author Organization [facility] Address [place], [place] [address] Care Team Providers Care Diplomatic Interpreter/Translator Name Role Phone Ritchie Mcfadden MD Primary Care Provider [phone] Allergies No known active allergies Medications Medication Sig Dispensed Refills Start Date End Date Status aspirin (ECOTRIN) 81 mg enteric coated tabletIndicatio ns:Hypertension Take 81 mg by mouth once every other day. 0 05/12/2019 Suspended losartan (COZAAR) 100 mg tabletIndicatio ns:Hypertension Take 1 tablet by mouth once daily. 0 05/12/2019 Suspended carvediloL (COREG) 6.25 mg tabletIndicatio ns:Hypertension Take 1.5 tablets by mouth 2 times daily with meals. 270 tablet 05/26/2020 04/02/20 24 Discontinued(P harmacist change per medication history (E-cancel not sent)) amLODIPine (NORVASC) 10 mg tabletIndicatio ns:Hypertension Take 0.5 Tablets (5 mg) by mouth once daily. 0 12/13/2022 Suspended finasteride (PROSCAR) 5 mg tablet Take 5 mg by mouth once daily. Suspended rosuvastatin (CRESTOR) 10 mg tablet Take 10 mg by mouth once daily. 03/26/2024 Suspended timoloL maleate (TIMOPTIC) 0.5 % ophthalmic solution Place 1 Drop into left eye once daily. Suspended carvediloL (COREG) 6.25 mg tablet Take 6.25 mg by mouth two times daily with meals. Suspended Lantus Solostar U-100 Insulin 100 unit/mL (3 mL) pen Inject 10 units subcutaneous once daily in the morning. Suspended Active Problems Problem Noted Date Diagnosed Date NSTEMI (non-ST elevated myocardial infarction) 0 04/02/2024 HTN (hypertension) 04/02/2024 Hyperlipidemia 04/02/2024 Left ventricular hypertrophy 04/02/2024 Type 2 diabetes mellitus, wi thout long-term current use of insulin 04/02/2024 History of colon polyps 11/18/2016 Overview: Colonoscopy 11/2016 polyp repeat in 5 years Encounters Date Type Department Care Team Description 04/02/2024 4:16 PM CDT - Present Hospital Encounter [facility] [address] [place] [address] [facility] [place], [facility], MD Bryce Sargent Valeed Ahmed, MD 04/02/2024 Telephone [facility] [place] [address] [facility] [address] [place] [address] Rajinder Phan MD from Last 3 Months Immunizations Name Administration Dates Next Due COVID-19 vaccine ([employer] 30mcg/0.3mL) DONALD VAZQUEZ 07/17/2021,11/30/2020,11/09/2020 Social History Tobacco [...] Sexual Orientation Not on file Obstetrics History Last Filed Vital Signs Vital Sign Reading Time Taken Comments Blood Pressure 163/89 04/02/2024 9:30 PM CDT Pulse 64 04/02/2024 9:30 PM CDT Temperature 36.5 ??C (97.7 ??F) 04/02/2024 9:30 PM CD T Respiratory Rate 18 04/02/2024 9:30 PM CDT Oxygen Saturation 93% 04/02/2024 9:30 PM CDT Inhaled Oxygen Concentration - - Weight 108.3 kg (238 lb 11.2 oz) 04/03/2024 6:00 AM CDT Height - - Body Mass Index - - Plan of Treatment Health Maintenance Due Date Last Done Comments Pneumococcal series for age 65+ (1 of 2 - PCV) 1951 Tdap 1956 Depression screening for age 12+ 1957 BMI (ht and wt on same day) for age 18+ 1963 Hepatitis C screening for ag e 18-79 1963 Tetanus booster 1965 Zoster (shingles) series for age 50+ (1 of 2) 1995 Medicare Wellness for age 65+ 2010 COVID-19 vaccine series (2022- season) 2024 10/08/2023, 03/28/2023, 07/15/2022, Additional history exists Influenza for age 65+ 2024 Procedures The patient is currently admitted. The information in this section might not be complete until the patient is discharged. Procedure Name Priority Date/Time Associated Diagnosis Comments EKG 12 LEAD LEWIS 04/03/2024 6:24 AM CDT SCAN-CARDIAC STRIP 04/03/2024 1: 11 AM CDT GLUCOSE METER Timed 04/02/2024 9:29 PM CDT SCAN-CARDIAC STRIP 04/02/2024 6: 35 PM CDT GLUCOSE METER Timed 04/02/2024 5:31 PM CDT CREATININE STAT 04/02/2024 5:01 PM CDT BUN STAT 04/02/2024 5:01 PM CDT POTASSIUM STAT 04/02/2024 5:01 PM CDT SODIUM STAT 04/02/2024 5:01 PM CDT CBC W PLT NO DIFF STAT 04/02/2024 5:0 1 PM CDT TROPONIN T (HS) ONE TIME STAT 04/02/2024 5:01 PM CDT EKG 12 LEAD STAT 04/02/2024 4:59 PM CDT from Last 3 Months Results * SCAN-CARDIAC STRIP (04/03/2024 1:11 AM CDT) Scanner OTHER * (ABNORMAL) GLUCOSE METER (04/02/2024 9:29 PM CDT) Only the most recent of2 resultswithin the time period is included. GLUCOSE METER 259(H) 65 - 100 mg/dL 04/02/2024 9:35 PM CDT [facility] Blood BLOOD SPECIMEN / Unknown 04/02/2024 9:29 PM CDT 04/02/2024 9:35 PM CDT [facility] CHEMISTRY [facility] [address] [place] [address], * SCAN-CARDIAC STRIP (04/02/2024 6:35 PM CDT) Scanner OTHER * (ABNORMAL) TROPONIN T (HS) ONE TIME (04/02/2024 5:01 PM CDT) TROPONIN T HS 278(H) 6-15 ng/L ng/L 04/02/2024 5:47 PM CDT [facility] Blood BLOOD SPECIMEN / Unknown Non-Lab Venipuncture / Unknown 04/02/2024 5:01 PM CDT 04/02/2024 5:11 PM CDT Narrative [facility] - 04/02/2024 5:47 PM CDT hs-cTnT (Elecsys Troponin T Gen 5) concentration (s) above the sex-specific 99th percentile (16 ng/L or greater for males or 11 ng/L or greater for females) are indicative of myocardial injury. If initial hs-cTnT <=100 ng/L at presentation, a 0h/2h ABSOLUTE (ng/L) delta change (rising or falling) of >=10 ng/L suggests a significant change, whereas a 0h/2h delta change <=3 ng/L suggests no significant change. If initial hs-cTnT >100 ng/L at presentation, a 0h/2h/ RELATIVE (percent, %) delta change of 20% is suggested to distinguish patients with acute vs. chronic myocardial injury. There are multiple etiologies that can cause hs-cTnT increases above the 99th percentile (myocardial injury) other than acute myocardial infarction. Clinical context and careful clinical evaluation are critical for diagnosis and risk-stratification. The diagnosis of acute myocardial infarction requires a rising and/or falling pattern in hs-cTnT concentrations with at least one value above the sex-specific 99th percentile PLUS at least one of the following clinical criteria: ischemic symptoms, new or presumed new significant ST-T wave changes or new LBBB, development of pathological Q waves, imaging evidence of new loss of viable myocardium or new regional wall motion abnormality, or identification of intracoronary atherothrombosis or an acute angiographic culprit on coronary angiography. In appropriate low-risk patients with a non-ischemic electrocardiogram without active chest pain with a symptom onset >3-hours without recurrence, a single initial hs-cTnT<6 ng/L identifies patient with a very low risk in emergency department patient population. Tr Marin MD CHEMISTRY [facility] [address] [place] [address], [place] * (ABNORMAL) CBC with Platelets no Differential (04/02/2024 5:01 PM CDT) [facility] WHITE BLOOD COUNT 10.3 4.5 - 11.0 thou/cu mm 04/02/2024 5:21 PM CDT [facility] RED BLOOD COUNT 5.66 4.30 - 5.90 mil/cu mm 04/02/2024 5:21 PM CDT [facility] HEMOGLOBIN 16.7 13.5 - 17.5 g/dL 04/02/2024 5:21 PM CDT [facility] HEMATOCRIT 49.3 37.0 - 53.0 % 04/02/2024 5:21 PM CDT [facility] MCV 87 80 - 100 fL 04/02/2024 5:21 PM CDT [facility] MCH 29.5 26.0 - 34.0 pg 04/02/2024 5:21 PM CDT [facility] MCHC 33.9 32.0 - 36.0 g/dL 04/02/2024 5:21 PM CDT [facility] RDW 12.8 11.5 - 15.5 % 04/02/2024 5:21 PM CDT [facility] PLATELET COUNT 218 140 - 440 thou/cu mm 04/02/2024 5:21 PM CDT [facility] MPV 12.0(H) 6.5 - 11.0 fL 04/02/2024 5:21 PM CDT [facility] NRBC 0.0 % 04/02/2024 5:21 PM CDT [facility] ABS NRBC 0.0 thou /cu mm 04/02/2024 5:21 PM CDT [facility] Blood BLOOD SPECIMEN / Unknown Non-Lab Venipuncture / Unknown 04/02/2024 5:01 PM CDT 04/02/2024 5:11 PM CDT Anan Cook NP HEMATOLOGY [facility] [address] [place] [address], * BUN (04/02/2024 5:01 PM CDT) BUN 13 8 - 23 mg/dL 04/02/2024 5:51 PM CDT [facility] Blood BLOOD SPECIMEN / Unknown Non-Lab Venipuncture / Unknown 04/02/2024 5:01 PM CDT 04/02/2024 5:11 PM CDT Anna Cook NP CHEMISTRY Performing Organization Address [facility] Co de Phone Number [facility] [address] [address], [place] * Sodium (04/02/2024 5:01 PM CDT) SODIUM 138 136 - 145 mmol/L 04/02/2024 5:51 PM CDT [facility] Blood BLOOD SPECIMEN / Unknown Non-Lab Venipuncture / Unknown 04/02/2024 5:01 PM CDT 04/02/2024 5:11 PM CDT Anna Cook NP CHEMISTRY Performing Organization Address [facility] de Phone Number [facility] [address] [place] [address], [place] * Potassium (04/02/2024 5:01 PM CDT) POTASSIUM 3.8 3.5 - 5.1 mmol/L 04/02/2024 5:51 PM CDT [facility] Blood BLOOD SPECIMEN / Unknown Non-Lab Venipuncture / Unknown 04/02/2024 5:01 PM CDT 04/02/2024 5:11 PM CDT Anna Cook NP CHEMISTRY Performing Organization Address [facility] de Phone Number [facility] [address] [address], [place] * Creatinine (04/02/2024 5:01 PM CDT) eGFR >90 >90 mL/min/1.7 3m2 04/02/2024 5:51 PM CDT [facility] Comment:As of 2021, eG FR is calculated by the CKD-EPI creatinine equation without race adjustment. ??eGFR can be influenced by muscle mass, exercise, and diet. ??The reported eGFR is an estimation only and is only applicable if the renal function is stable. CREATININE 0.78 0.70 - 1.20 mg/dL 04/02/2024 5:51 PM CDT [facility] Blood BLOOD SPECIMEN / Unknown Non-Lab Venipuncture / Unknown 04/02/2024 5:01 PM CDT 04/02/2024 5:11 PM CDT Anna Cook UPHOL[employer]OVERS INSPECTOR CHEMISTRY [facility] [address] [place] [address], from Last 3 Months Advance Directives * Full Code (Latest Code Status on File) Date Activated Date Inactivated Comments 04/02/2024 4:50 PM Question Answer Comments Code Status Discussion: Reviewed Preferences Care Teams Diplomatic Interpreter/Translator Relationship Specialty Start Date End Date Ritchie Mcfadden MD [address] [place] [address] PCP - General Family Practice 09/17/21
--- OUTSIDE RECORDS SUMMARY | 2024-04-03 07:30 | XMS_ITS | Referral Summary ---
Author Organization [facility] Address [address] [place] [address] Care Team Providers Care Talent Development Consultant Name Role Phone Ritchie Mcfadden MD Primary Care Provider [phone] Allergies No known active allergies Medications Medication [...] diabetes mellitus with hyperosmolarity without coma, unspecified terminal operations supervisor insulin use status Use to calibrate blood glucose monitor as directed. 1 each 02/20/2018 Active blood glucose monitoring (NO BRAND SPECIFIED) meter device kitIndications:Type 2 diabetes mellitus with hyperosmolarity without coma, unspecified long-term insulin use status Use to test blood sugar 4 times daily or as directed. 1 kit 02/20/2018 Active blood glucose (NO BRAND SPECIFIED) lancets standardIndications:T ype 2 diabetes mellitus with hyperosmolarity without coma, unspecified long-term insulin use status Use to test blood sugar 4 times daily or as directed. 100 each 11 02/20/2018 Active blood glucose monitoring (NO BRAND SPECIFIED) test stripIndications:Type 2 diabetes mellitus with hyperosmolarity without coma, unspecified long-term insulin use status Use to test blood sugars 4 times daily or as directed 100 strip 1 02/20/2018 Active hydrochlorothiazide (MICROZIDE) 12.5 MG capsuleIndications:Be nign essential hypertension Take 1 capsule (12.5 mg) by mouth daily 30 capsule 02/21/2018 Active insulin glargine (LANTUS SOLOSTAR) 100 UNIT/ML penIndications:Type 2 diabetes mellitus with hyperosmolarity without coma, unspecified long-term insulin use status Inject 15 Units Subcutaneous [...] diabetes mellitus with hyperosmolarity without coma, unspecified terminal operations supervisor insulin use status (H) COLONOSCOPY - HIM SCAN Routine 11/18/2016 from Last 3 Months or Most Recently Relevant to Health Maintenance Results * (ABNORMAL) Basic metabolic panel (02/21/2018 6:12 AM CDT) Sodium 141 133 - 144 mmol/L 02/21/2018 6:45 AM CDT [facility] Potassium 3.6 3.4 - 5.3 mmol/L 02/21/2018 6:45 AM T [facility] Chloride 109 94 - 109 mmol/L 02/21/2018 6:45 AM [facility] Carbon Dioxide 26 20 - 32 mmol/L 02/21/2018 6:45 AM [facility] Anion Gap 6 3 - 14 mmol/L 02/21/2018 6:45 AM [facility] Glucose 188(H) 70 - 99 mg/dL 02/21/2018 6:45 AM T [facility] Urea Nitrogen 14 7 - 30 mg/dL 02/21/2018 6:45 AM [facility] Creatinine 0.86 0.66 - 1.25 mg/dL 02/21/2018 6:45 AM [facility] GFR Estimate 88 >60 mL/min/1.7 m2 02/21/2018 6:45 AM [facility] Comment:Non GFR Calc GFR Estimate If Black >90 >60 mL/min/1.7 m2 02/21/2018 6:45 AM [facility] Comment: GFR Calc Calcium 8.1(L) 8.5 - 10.1 mg/dL 02/21/2018 6:45 AM [facility] Blood specimen (specimen) 02/21/2018 6:12 AM CDT 02/21/2018 6:20 AM CDT Isabella Chavez MD LAB - BLOOD ORDERABL ES [facility] [address], [place] [address], [facility] [phone] * Colonoscopy - HIM Scan (11/18/2016) Narrative Chauncey Patiño - 11/18/2016 [facility] PROGRESS NOTE/CLINIC NOTE Provider Outside PROCEDURES from Last 3 Months or Most Recently Relevant to Health Maintenance Advance Directives For more information, please contact: [phone] * Full Code (Latest Code Status on File) Date Activated Date Inactivated Comments 02/20/2018 5:38 PM 02/21/2018 7:58 PM Care Teams Talent Development Consultant Relationship Specialty Start Date End Date Ritchie Mcfadden MD PCP - General Family Practice 02/21/18
--- OUTSIDE RECORDS SUMMARY | 2024-04-03 07:30 | XMS_ITS | Clinical Summary ---
Author Organization [facility] Address [address] [place] [address] Care Team Providers Care Business Objects Report Developer Name Role Phone Ritchie Mcfadden MD Primary Care Provider [phone] Allergies No known active allergies Medications Medication [...] diabetes mellitus with hyperosmolarity without coma, unspecified gastrointestinal technician insulin use status Use to calibrate blood glucose monitor as directed. 1 each 02/20/2018 Active blood glucose monitoring (NO BRAND SPECIFIED) meter device kitIndications:Type 2 diabetes mellitus with hyperosmolarity without coma, unspecified assisted insulin use status Use to test blood sugar 4 times daily or as directed. 1 kit 02/20/2018 Active blood glucose (NO BRAND SPECIFIED) lancets standardIndications:T ype 2 diabetes mellitus with hyperosmolarity without coma, unspecified assisted insulin use status Use to test blood sugar 4 times daily or as directed. 100 each 11 02/20/2018 Active blood glucose monitoring (NO BRAND SPECIFIED) test stripIndications:Type 2 diabetes mellitus with hyperosmolarity without coma, unspecified assisted insulin use status Use to test blood sugars 4 times daily or as directed 100 strip 1 02/20/2018 Active hydrochlorothiazide (MICROZIDE) 12.5 MG capsuleIndications:Be nign essential hypertension Take 1 capsule (12.5 mg) by mouth daily 30 capsule 02/21/2018 Active insulin glargine (LANTUS SOLOSTAR) 100 UNIT/ML penIndications:Type 2 diabetes mellitus with hyperosmolarity without coma, unspecified assisted insulin use status Inject 15 Units Subcutaneous [...] diabetes mellitus with hyperosmolarity without coma, unspecified assisted insulin use status (H) COLONOSCOPY - HIM SCAN Routine 11/18/2016 from Last 3 Months or Most Recently Relevant to Health Maintenance Results * (ABNORMAL) Basic metabolic panel (02/21/2018 6:12 AM CDT) Sodium 141 133 - 144 mmol/L 02/21/2018 6:45 AM [facility] Potassium 3.6 3.4 - 5.3 mmol/L 02/21/2018 6:45 AM [facility] Chloride 109 94 - 109 mmol/L 02/21/2018 6:45 AM [facility] Carbon Dioxide 26 20 - 32 mmol/L 02/21/2018 6:45 AM [facility] Anion Gap 6 3 - 14 mmol/L 02/21/2018 6:45 AM [facility] Glucose 188(H) 70 - 99 mg/dL 02/21/2018 6:45 AM [facility] Urea Nitrogen 14 7 - 30 mg/dL 02/21/2018 6:[address] [facility] Creatinine 0.86 0.66 - 1.25 mg/dL 02/21/2018 6:[address] [facility] GFR Estimate 88 >60 mL/min/1.7 m2 02/21/2018 6:[address] [facility] Comment:Non GFR Calc GFR Estimate If Black >90 >60 mL/min/1.7 m2 02/21/2018 6:[address] [facility] Comment: GFR Calc Calcium 8.1(L) 8.5 - 10.1 mg/dL 02/21/2018 6:[address] [facility] Blood specimen (specimen) 02/21/2018 6:12 AM CDT 02/21/2018 6:20 AM CDT Isabella Chavez MD LAB - BLOOD ORDERABL ES [facility] [address] [place] [address], [facility] [phone] * Colonoscopy - HIM Scan (11/18/2016) Narrative Chauncey Patiño - 11/18/2016 [facility] PROGRESS NOTE/CLINIC NOTE Provider Outside PROCEDURES from Last 3 Months or Most Recently Relevant to Health Maintenance Advance Directives For more information, please contact: [phone] * Full Code (Latest Code Status on File) Date Activated Date Inactivated Comments 02/20/2018 5:38 PM 02/21/2018 7:58 PM Care Teams Business Objects Report Developer Relationship Specialty Start Date End Date Ritchie Mcfadden MD PCP - General Family Practice 02/21/18
== END 2024-04-02 14:46 | disposition home or self-care (01) ==
LOC: AMB 04-03 07:26
PROVIDERS: PCP Family Medicine; Visit Provider Student in an Organized Health Care Education/Training Program
DX: I21.4 Non-ST elevation (NSTEMI) myocardial infarction (principal)
CPT/HCPCS: A0425; A0434

== ENCOUNTER 2024-04-09 11:45 | Outpatient (CLI) | payer OTHER, SELFPAY ==
--- OUTSIDE RECORDS SUMMARY | 2024-04-09 11:48 | XMS_ITS | Clinical Summary ---
Author Organization [facility] Address [address] [place] [address] Care Team Providers Care Applications Manager Name Role Phone Ritchie Mcfadden MD Primary Care Provider [phone] Allergies No known active allergies Medications Medication [...] diabetes mellitus with hyperosmolarity without coma, unspecified joint terminal attack controller insulin use status Use to calibrate blood glucose monitor as directed. 1 each 02/20/2018 Active blood glucose monitoring (NO BRAND SPECIFIED) meter device kitIndications:Type 2 diabetes mellitus with hyperosmolarity without coma, unspecified residential insulin use status Use to test blood sugar 4 times daily or as directed. 1 kit 02/20/2018 Active blood glucose (NO BRAND SPECIFIED) lancets standardIndications:T ype 2 diabetes mellitus with hyperosmolarity without coma, unspecified residential insulin use status Use to test blood sugar 4 times daily or as directed. 100 each 11 02/20/2018 Active blood glucose monitoring (NO BRAND SPECIFIED) test stripIndications:Type 2 diabetes mellitus with hyperosmolarity without coma, unspecified residential insulin use status Use to test blood sugars 4 times daily or as directed 100 strip 1 02/20/2018 Active hydrochlorothiazide (MICROZIDE) 12.5 MG capsuleIndications:Be nign essential hypertension Take 1 capsule (12.5 mg) by mouth daily 30 capsule 02/21/2018 Active insulin glargine (LANTUS SOLOSTAR) 100 UNIT/ML penIndications:Type 2 diabetes mellitus with hyperosmolarity without coma, unspecified residential insulin use status Inject 15 Units Subcutaneous [...] diabetes mellitus with hyperosmolarity without coma, unspecified joint terminal attack controller insulin use status (H) COLONOSCOPY - HIM SCAN Routine 11/18/2016 from Last 3 Months or Most Recently Relevant to Health Maintenance Results * (ABNORMAL) Basic metabolic panel (02/21/2018 6:12 AM CDT) Sodium 141 133 - 144 mmol/L 02/21/2018 6:45 AM CDT [facility] Potassium 3.6 3.4 - 5.3 mmol/L 02/21/2018 6:45 AM T [facility] Chloride 109 94 - 109 mmol/L 02/21/2018 6:45 AM [facility] Carbon Dioxide 26 20 - 32 mmol/L 02/21/2018 6:45 AM [facility] Anion Gap 6 3 - 14 mmol/L 02/21/2018 6:45 AM [facility] Glucose 188(H) 70 - 99 mg/dL 02/21/2018 6:45 AM T [facility] Urea Nitrogen 14 7 - 30 mg/dL 02/21/2018 6:45 AM [facility] Creatinine 0.86 0.66 - 1.25 mg/dL 02/21/2018 6:45 AM [facility] GFR Estimate 88 >60 mL/min/1.7 m2 02/21/2018 6:45 AM [facility] Comment:Non GFR Calc GFR Estimate If Black >90 >60 mL/min/1.7 m2 02/21/2018 6:45 AM [facility] Comment: GFR Calc Calcium 8.1(L) 8.5 - 10.1 mg/dL 02/21/2018 6:45 AM [facility] Blood specimen (specimen) 02/21/2018 6:12 AM CDT 02/21/2018 6:20 AM CDT Isabella Chavez MD LAB - BLOOD ORDERABL ES [facility] [address], [place] [address], [facility] [phone] * Colonoscopy - HIM Scan (11/18/2016) Narrative Chauncey Patiño - 11/18/2016 [facility] PROGRESS NOTE/CLINIC NOTE Provider Outside PROCEDURES from Last 3 Months or Most Recently Relevant to Health Maintenance Advance Directives For more information, please contact: [phone] * Full Code (Latest Code Status on File) Date Activated Date Inactivated Comments 02/20/2018 5:38 PM 02/21/2018 7:58 PM Care Teams Applications Manager Relationship Specialty Start Date End Date Ritchie Mcfadden MD [facility] [address] [place] [address] PCP - General Family Practice 02/21/18
--- OUTSIDE RECORDS SUMMARY | 2024-04-09 11:48 | XMS_ITS | Referral Summary ---
Author Organization [facility] Address [address] [place] [id number] Care Team Providers Care Editorial Director Name Role Phone Ritchie Mcfadden MD Primary Care Provider [phone] Allergies No known active allergies Medications Medication [...] diabetes mellitus with hyperosmolarity without coma, unspecified ad terminal makeup operator insulin use status Use to calibrate blood glucose monitor as directed. 1 each 02/20/2018 Active blood glucose monitoring (NO BRAND SPECIFIED) meter device kitIndications:Type 2 diabetes mellitus with hyperosmolarity without coma, unspecified usp insulin use status Use to test blood sugar 4 times daily or as directed. 1 kit 02/20/2018 Active blood glucose (NO BRAND SPECIFIED) lancets standardIndications:T ype 2 diabetes mellitus with hyperosmolarity without coma, unspecified usp insulin use status Use to test blood sugar 4 times daily or as directed. 100 each 11 02/20/2018 Active blood glucose monitoring (NO BRAND SPECIFIED) test stripIndications:Type 2 diabetes mellitus with hyperosmolarity without coma, unspecified usp insulin use status Use to test blood sugars 4 times daily or as directed 100 strip 1 02/20/2018 Active hydrochlorothiazide (MICROZIDE) 12.5 MG capsuleIndications:Be nign essential hypertension Take 1 capsule (12.5 mg) by mouth daily 30 capsule 02/21/2018 Active insulin glargine (LANTUS SOLOSTAR) 100 UNIT/ML penIndications:Type 2 diabetes mellitus with hyperosmolarity without coma, unspecified usp insulin use status Inject 15 Units Subcutaneous [...] diabetes mellitus with hyperosmolarity without coma, unspecified ad terminal makeup operator insulin use status (H) COLONOSCOPY - HIM SCAN Routine 11/18/2016 from Last 3 Months or Most Recently Relevant to Health Maintenance Results * (ABNORMAL) Basic metabolic panel (02/21/2018 6:12 AM CDT) Sodium 141 133 - 144 mmol/L 02/21/2018 6:45 AM CDT [facility] Potassium 3.6 3.4 - 5.3 mmol/L 02/21/2018 6:45 AM T [facility] Chloride 109 94 - 109 mmol/L 02/21/2018 6:45 AM [facility] Carbon Dioxide 26 20 - 32 mmol/L 02/21/2018 6:45 AM [facility] Anion Gap 6 3 - 14 mmol/L 02/21/2018 6:45 AM [facility] Glucose 188(H) 70 - 99 mg/dL 02/21/2018 6:45 AM T [facility] Urea Nitrogen 14 7 - 30 mg/dL 02/21/2018 6:45 AM [facility] Creatinine 0.86 0.66 - 1.25 mg/dL 02/21/2018 6:45 AM [facility] GFR Estimate 88 >60 mL/min/1.7 m2 02/21/2018 6:45 AM [facility] Comment:Non GFR Calc GFR Estimate If Black >90 >60 mL/min/1.7 m2 02/21/2018 6:45 AM [facility] Comment: GFR Calc Calcium 8.1(L) 8.5 - 10.1 mg/dL 02/21/2018 6:45 AM [facility] Blood specimen (specimen) 02/21/2018 6:12 AM CDT 02/21/2018 6:20 AM CDT Isabella Chavez MD LAB - BLOOD ORDERABL ES [facility] [address], [place] [address], [facility] [phone] * Colonoscopy - HIM Scan (11/18/2016) Narrative Chauncey Patiño - 11/18/2016 [facility] PROGRESS NOTE/CLINIC NOTE Provider Outside PROCEDURES from Last 3 Months or Most Recently Relevant to Health Maintenance Advance Directives For more information, please contact: [phone] * Full Code (Latest Code Status on File) Date Activated Date Inactivated Comments 02/20/2018 5:38 PM 02/21/2018 7:58 PM Care Teams Editorial Director Relationship Specialty Start Date End Date Ritchie Mcfadden MD [facility] [id number] [place] [address] PCP - General Family Practice 02/21/18
--- OUTSIDE RECORDS SUMMARY | 2024-04-09 11:48 | XMS_ITS | Clinical Summary ---
Author Organization [employer] [facility] Address [place], [place] [address] Care Team Providers Care Bearing Ring Assembler Name Role Phone Miriam Mcfadden MD Primary Care Provider [phone] Allergies No known active allergies Medications Medication Sig Dispensed Refills Start Date End Date Status aspirin (ECOTRIN) 81 mg enteric coated tabletIndication s:Hypertension Take 81 mg by mouth once every other day. 0 9 Active losartan (COZAAR) 100 mg tabletIndication s:Hypertension Take 1 tablet by mouth once daily. 0 9 Active finasteride (PROSCAR) 5 mg tablet Take 5 mg by mouth once daily. Active timoloL maleate (TIMOPTIC) 0.5 % ophthalmic solution Place 1 Drop into left eye once daily. Active carvediloL (COREG) 6.25 mg tablet Take 6.25 mg by mouth two times daily with meals. Active Lantus Solostar U-100 Insulin 100 unit/mL (3 mL) pen Inject 10 units subcutaneous once daily in the morning. Active rosuvastatin (CRESTOR) 10 mg tabletIndication s:NSTEMI (non-ST elevated myocardial infarction) (HC) Take 2 Tablets (20 mg) by mouth once daily. 60 Tablet 2 4 Active isosorbide mononitrate (IMDUR) 30 mg extended release tablet 24 HourIndications: Coronary artery disease, unspecified vessel or lesion type, unspecified whether angina present, unspecified whether [place] or transplanted heart Take 1 Tablet (30 mg) by mouth once daily. 90 Tablet 1 4 Active nitroglycerin (NITROSTAT) 0.4 mg sublingual tabletIndication s:NSTEMI (non-ST elevated myocardial infarction) (HC),Coronary artery disease, unspecified vessel or lesion type, unspecified whether angina present, unspecified whether [place] or transplanted heart Place 1 Tablet (0.4 mg) under the tongue every 5 minutes if needed for Chest pain 1st choice (Hold if SBP less than 90 mmHg). Up to 3 tablets in 15 minutes. 25 Tablet 3 4 Active sennosides (SENNA) 8.6 mg tabletIndication s:Constipation, unspecified constipation type Take 1-2 Tablets (8.6-17.2 mg) by mouth 2 times daily if needed for Constipation. 60 Tablet 4 Active ticagrelor (BRILINTA) 90 mg tabletIndication s:Coronary artery disease, unspecified vessel or lesion type, unspecified whether angina present, unspecified whether [place] or transplanted heart Take 1 Tablet (90 mg) by mouth two times daily. 180 Tablet 3 4 Active amLODIPine (NORVASC) 10 mg tabletIndication s:Hypertension Take 1 Tablet (10 mg) by mouth once daily. 4 Active carvediloL (COREG) 6.25 mg tabletIndication s:Hypertension Take 1.5 tablets by mouth 2 times daily with meals. 270 tablet 0 04/02/20 24 Discontinued(Ph armacist change per medication history (E-cancel not sent)) amLODIPine (NORVASC) 10 mg tabletIndication s:Hypertension Take 0.5 Tablets (5 mg) by mouth once daily. 0 3 04/06/20 24 Discontinued rosuvastatin (CRESTOR) 10 mg tablet Take 10 mg by mouth once daily. 4 04/06/20 24 Discontinued ticagrelor (BRILINTA) 90 mg tabletIndication s:Coronary artery disease, unspecified vessel or lesion type, unspecified whether angina present, unspecified whether [place] or transplanted heart Take 1 Tablet (90 mg) by mouth two times daily. 60 Tablet 11 4 04/06/20 24 Discontinued Active Problems Problem Noted Date Diagnosed Date NSTEMI (non-ST elevated myocardial infarction) 0 04/02/2024 HTN (hypertension) 04/02/2024 Hyperlipidemia 04/02/2024 Left ventricular hypertrophy 04/02/2024 Type 2 diabetes mellitus, wi thout long-term current use of insulin 04/02/2024 History of colon polyps 11/18/2016 Overview: Colonoscopy 11/2016 polyp repeat in 5 years Encounters Date Type Department Care Team Description 04/05/2024 Travel 04/02/2024 4:16 PM CDT - 04/06/2024 11:40 AM CDT Hospital Encounter [facility] [address] [place] [address] [facility], [facility] Hospitalists Of [place], MD Bryce Sargent, MD Rhonda Sosa, Jose Manuel Person MD NSTEMI (non-ST elevated myocardial infarction) (HC) (Primary Dx); Cardiovascular symptoms; Coronary artery disease, unspecified vessel or lesion type, unspecified whether angina present, unspecified whether [place] or transplanted heart; Constipation, unspecified constipation type; Hypertension Discharge Disposition: Home Self Care 04/02/2024 Telephone [employer] [facility] [address] [place] [address] Rajinder Phan MD from Last 3 Months Immunizations Name Administration Dates Next Due COVID-19 vaccine ([employer] 30mcg/0.3mL) DONALD VAZQUEZ 07/17/2021,11/30/2020,11/09/2020 Social History [...] Sign Reading Time Taken Comments Blood Pressure 144/78 04/06/2024 8:02 AM CDT Pulse 72 04/06/2024 10:59 AM CDT Temperature 36.4 ??C (97.6 ??F) 04/06/2024 8:02 AM CD T Respiratory Rate 16 04/06/2024 8:02 AM CDT Oxygen Saturation 98% 04/06/2024 8:02 AM CDT Inhaled Oxygen Concentration - - Weight 107.5 kg (237 lb) 04/06/2024 6:00 AM CDT Height - - Body Mass Index - - Plan of Treatment Upcoming Encounters Date Type Department Care Team (Late st Contact Info) Description 05/19/2024 10:00 AM CDT Office Visit [facility] [address] [place], [place] [id number] Joana Jackson NP [address] [facility] [address] [place] [address] Health Maintenance Due Date Last Done Comments [...] for age 65+ 2010 COVID-19 vaccine series ( season) 2024 10/08/2023, 03/28/2023, 07/15/2022, Additional history exists Influenza for age 65+ 2024 Procedures Procedure Name Priority Date/Time Associated Diagnosis Comments SCAN-CARDIAC STRIP 04/06/2024 10 :20 AM CDT HEMATOCRIT Early AM 04/06/2024 7:23 AM CDT HEMOGLOBIN Early AM 04/06/2024 7:23 AM CDT PLATELET COUNT Early AM 04/06/2024 7:23 AM CDT GLUCOSE METER Timed 04/06/2024 6:10 AM CDT GLUCOSE METER Timed 04/05/2024 9:12 PM CDT GLUCOSE METER Timed 04/05/2024 5:08 PM CDT APTT Timed 04/05/2024 3:52 PM CDT SCAN CORRESP-EKG RESULTS 04/05/2024 2:40 PM CDT SCAN CORRESP-IMAGING 04/05/2024 2:40 PM CDT GLUCOSE METER Timed 04/05/2024 12:13 PM CDT HCHG ACTIVATED CLOTTING TM CV Timed 04/05/2024 11:03 AM CDT HCHG ACTIVATED CLOTTING TM CV Timed 04/05/2024 10:50 AM CDT CVL CORONARY ANGIOGRAM POSS PCI Routine 04/05/2024 10:46 AM CDT Cardiovascular symptoms SCAN-CARDIAC STRIP 04/05/2024 10 :11 AM CDT GLUCOSE METER Timed 04/05/2024 8:14 AM CDT MAGNESIUM Early AM 04/05/2024 3:02 AM CDT BASIC METABOLIC PANEL Early AM 04/05/2024 3:02 AM CDT HEMATOCRIT Early AM 04/05/2024 3:02 AM CDT HEMOGLOBIN Early AM 04/05/2024 3:02 AM CDT PLATELET COUNT Early AM 04/05/2024 3:02 AM CDT APTT Timed 04/05/2024 3:02 AM CDT SCAN-CARDIAC STRIP 04/05/2024 12 :41 AM CDT GLUCOSE METER Timed 04/04/2024 9:14 PM CDT APTT Timed 04/04/2024 7:30 PM CDT GLUCOSE METER Timed 04/04/2024 5:43 PM CDT SCAN-CARDIAC STRIP 04/04/2024 4: 04 PM CDT EKG 12 LEAD STAT 04/04/2024 12:11 PM CDT EKG 12 LEAD STAT 04/04/2024 12:10 PM CDT GLUCOSE METER Timed 04/04/2024 11:58 AM CDT EKG 12 LEAD STAT 04/04/2024 11:39 AM CDT HCHG ACTIVATED CLOTTING TM CV Timed 04/04/2024 9:50 AM CDT CVL CORONARY ANGIOGRAM POSS PCI Routine 04/04/2024 9:43 AM CDT Cardiovascular symptoms SCAN-CARDIAC STRIP 04/04/2024 8: 37 AM CDT HEMATOCRIT Early AM 04/04/2024 8:22 AM CDT HEMOGLOBIN Early AM 04/04/2024 8:22 AM CDT PLATELET COUNT Early AM 04/04/2024 8:22 AM CDT GLUCOSE METER Timed 04/04/2024 7:58 AM CDT EKG 12 LEAD STAT 04/04/2024 5:12 AM CDT APTT Timed 04/04/2024 2:22 AM CDT SCAN-OPERATIVE/PROCE DURE REPORT 04/04/2024 12:00 AM CDT GLUCOSE METER Timed 04/03/2024 9:48 PM CDT CREATININE LEWIS 04/03/2024 5:00 PM CDT BUN LEWIS 04/03/2024 5:00 PM CDT HEMATOCRIT LEWIS 04/03/2024 5:00 PM CDT HEMOGLOBIN LEWIS 04/03/2024 5:00 PM CDT PLATELET COUNT LEWIS 04/03/2024 5:00 PM CDT APTT LEWIS 04/03/2024 5:00 PM CDT PROTIME-INR LEWIS 04/03/2024 5:00 PM CDT GLUCOSE METER Timed 04/03/2024 4:55 PM CDT GLUCOSE METER Timed 04/03/2024 12:34 PM CDT ECHO TTE COMPLETE WO CONTRAST Routine 04/03/2024 11:17 AM CDT GLUCOSE METER Timed 04/03/2024 8:08 AM CDT LIPID PANEL LEWIS 04/03/2024 6:34 AM CDT MAGNESIUM Timed 04/03/2024 6:34 AM CDT EKG 12 LEAD LEWIS 04/03/2024 6:24 AM [...] Last 3 Months Results * SCAN-CARDIAC STRIP (04/06/2024 10:20 AM CDT) Scanner OTHER * (ABNORMAL) PLATELET COUNT (04/06/2024 7:23 AM CDT) Only the most recent of4 resultswithin the time period is included. PLATELET COUNT 200 140 - 440 thou/cu mm 04/06/2024 8:04 AM CDT [facility] MPV 11.7(H) 6.5 - 11.0 fL 04/06/2024 8:04 AM CDT [facility] Blood BLOOD SPECIMEN / Unknown Butterfly / Unknown 04/06/2024 7:23 AM CDT 04/06/2024 7:43 AM CDT Narrative [facility] - 04/06/2024 8:04 AM CDT Every morning while on IV heparin. Every morning while on IV heparin. Necessary every morning while on IV heparin. Valery Duckworth NP [facility] [address] [place] [address], [place] * HEMOGLOBIN (04/06/2024 7:23 AM CDT) Only the most recent of4 resultswithin the time period is included. HEMOGLOBIN 15.7 13.5 - 17.5 g/dL 04/06/2024 8:04 AM CDT [facility] MCV 88 80 - 100 fL 04/06/2024 8:04 AM CDT [facility] Blood BLOOD SPECIMEN / Unknown Butterfly / Unknown 04/06/2024 7:23 AM CDT 04/06/2024 7:43 AM CDT [facility] - 04/06/2024 8:04 AM CDT Every morning while on IV heparin. Every morning while on IV heparin. Necessary every morning while on IV heparin. Valery Duckworth NP HEMATOLOGY Performing Organization Address [facility]/ZIP Co de Phone Number [facility] [address] [address], [place] * HEMATOCRIT (04/06/2024 7:23 AM CDT) Only the most recent of4 resultswithin the time period is included. HEMATOCRIT 48.0 37.0 - 53.0 % 04/06/2024 8:04 AM CDT [facility] Blood BLOOD SPECIMEN / Unknown Butterfly / Unknown 04/06/2024 7:23 AM CDT 04/06/2024 7:43 AM CDT [facility] - 04/06/2024 8:04 AM CDT Every morning while on IV heparin. Every morning while on IV heparin. Necessary every morning while on IV heparin. Valery Duckworth NP HEMATOLOGY Performing Organization Address City/[facility]/ZIP Co de Phone Number [facility] [address] [place] [id number], [place] * (ABNORMAL) GLUCOSE METER (04/06/2024 6:10 AM CDT) Only the most recent of15 resultswithin the time period is included. GLUCOSE METER 153(H) 65 - 100 mg/dL 04/06/2024 6:11 AM CDT [facility] Blood BLOOD SPECIMEN / Unknown 04/06/2024 6:10 AM CDT 04/06/2024 6:11 AM CDT Jose Manuel Ellis MD CHEMISTRY Performing Organization Address [facility] Co de Phone Number [facility] [address] [place] [address], * APTT (04/05/2024 3:52 PM CDT) Only the most recent of5 resultswithin the time period is included. APTT 30 28 - 36 sec 04/05/2024 4:19 PM CDT [facility] Blood BLOOD SPECIMEN / Unknown Butterfly / Unknown 04/05/2024 3:52 PM CDT 04/05/2024 3:58 PM CDT Narrative [facility] - 04/05/2024 4:19 PM CDT Therapeutic Range: 57-87 seconds Fannie Wu MD HEMATOLOGY Performing Organization Address [facility] Co de Phone Number [facility] [address] [place] [address], * SCAN CORRESP-EKG RESULTS (04/05/2024 2:40 PM CDT) Narrative 04/05/2024 2:40 PM CDT Ordered by an unspecified provider. Other Clinical Staff OTHER * SCAN CORRESP-IMAGING (04/05/2024 2:40 PM CDT) Anatomical Region Laterality Modality Other Narrative 04/05/2024 2:40 PM CDT Ordered by an unspecified provider. Other Clinical Staff OTHER * (ABNORMAL) ACTIVATED CLOTTING TIME [id number] ACT (04/05/2024 11:03 AM CDT) Only the most recent of3 resultswithin the time period is included. ACTIVATED CLOTTING TIME, POCT 384(H) 74 - 125 sec 04/06/2024 5:07 PM CDT [facility] Blood BLOOD SPECIMEN / Unknown 04/05/2024 11:03 AM CDT 04/06/2024 5:07 PM CDT [facility] HEMATOLOGY [facility] [address] [place] [address], * CVL CORONARY ANGIOGRAM POSS PCI (04/05/2024 10:46 AM CDT) Anatomical Region Laterality Modality Other 04/05/2024 10:4 6 AM CDT Narrative Transcriptions Ashish Pinto MD - 04/05/2024 4:12 PM CDT [facility] Cardiac Catheterization Report Name: ANISA HUANG Event Date: 04/05/2024 10:46 [employer] ID #: [id number] ADALI #: [id number] Patient Class: Inpatient Diagnostic Physician: ASHISH PINTO [facility] Interventional Physician: ASHISH PINTO [facility] Referring Physician: Primary Care Physician: MIRIAM MCFADDEN Date: 1945 Gender: Male Age: 78 Summary/Conclusions PRESENTATION / INDICATIONS * NonSTEMI * Staged PCI after Heart Team discussion and coronary angiographyyesterday VASCULAR ACCESS * Using ultrasound guidance and a percutaneous technique, the right radialartery was accessed. Ultrasound was used to confirm vessel patency,localizing needle into the lumen of the vessel. An image was saved for themedical record. INTERVENTION ? Successful 2mm x 12mm Balloon and 2.5mm x 18mm Drug Eluting Stent(Jay Austin) to 1st Marginal, post stenosis 0% RECOMMENDATIONS & PLAN * Medical Rx - Aspirin: 81 mg daily * Ticagrelor 90 mg bid for one year Consent & [place] Protocol The risks, benefits, and alternatives of the procedure were discussed withthe patient and written informed consent was obtained. [place] protocol was followed. TIME OUT conducted just prior tostarting procedure confirmed patient identity, site/side, procedure,patient position, and availability of correct equipment and implants (ifapplicable). Staff Name Title ASHISH PINTO Acid Bath Mixer Dio Bliss RN Nurse Domingo Ambrosio CVT Scrub Hanny Webber RTR Monitor Preethi Stevens CVT Senior Controls Technician ASHISH PINTO Diagnostic Fighting Vehicle Systems Maintainer Procedures ? Ultrasound Guided Vascular Access ? Coronary Angiogram ? Stent Placement, Drug Eluting [PCI] Diagnostic Findings * Circumflex ? 95% (denovo) stenosis in the 1st Marginal. The lesion has a SANGEETHA flowof 2. Lesion Information Lesion # Vessel Segment Lesion Length Lesion Details 1 1st Marginal 12 Hemodynamics State: Baseline Pressures (mmHg) Site Systolic Diastolic End Diastolic A Wave V Wave Mean AO 115 59 85 Interventional Results * Circumflex ? Successful intervention to the 1st Marginal 95% lesion with a finalstenosis of 0% using a 2mm x 12mm Balloon and a 2.5mm x 18mm DrugEluting Stent. The final SANGEETHA flow was 3. Interventional Devices Lesion # Vessel Segment Type Name Max Pressure 1 1st Marginal Balloon BLLN EUPHORA RX [id number] 1 1st Marginal Drug Eluting Stent FAUSTINO JAY Austin RX [id number] Procedure Details Estimated Blood Loss: < 30 ml Specimen Collected: None Level of Sedation Achieved: Moderate Procedure Start: 10:46 Procedure End: 11:10 Procedure Time: 24 min Fluoroscopy Time: 5.3 min Cumulative Air Kerma: 453 mGy DAP: 2312 uGy/M2 Contrast: Omnipaque (low-osmolar), 40 ml Physiologic Data Actual VO2: 257.2 Weight: 109.3 kg Vascular Access Time Access Sheath Size 10:48 Right Radial Artery, sheath inserted Medications Ordered and Administered Start Time Stop Time Medication Dose Units Route Ordered By Given By 10:44 Fentanyl 50 mcg IV Ashish Pinto Nathan RN 10:44 Versed 1 mg IV Ashish Pinto Nathan RN 10:47 1% Lidocaine 0.5 ml Subcut Ashish Pinto Mario 10:49 Nitroglycerin 100 mcg IA Ashish Pinto Mario 10:53 Heparin 33834 units IV Ashish Pinto Nathan RN 11:04 Nitroglycerin 100 mcg IC Ashish Pinto Mario I personally monitored the patient?s conscious sedation during theprocedure. Conscious sedation starts with the first sedation medication dose ofFentanyl or Versed and ends when the procedure is completed, the patientis stable for recovery status, and the physician or other qualified healthcare professional providing the sedation ends personal toiftviykdxwpu-wo-cfum time with the patient. The medications listed above were verbally ordered by me and read back tome as documented above. Refer to the procedure log report for additional case details. electronically signed on 04/05/2024 4:12:59 PM with status of Final Ashish Pinto MD [facility] [address] [address] (p) (f) Provider Referring CV IMAGING * SCAN-CARDIAC STRIP (04/05/2024 10:11 AM CDT) Scanner OTHER * MAGNESIUM (04/05/2024 3:02 AM CDT) Only the most recent of2 resultswithin the time period is included. MAGNESIUM 2.1 1.6 - 2.4 mg/dL 04/05/2024 4:00 AM CDT [facility] Blood BLOOD SPECIMEN / Unknown Butterfly / Unknown 04/05/2024 3:02 AM CDT 04/05/2024 3:10 AM CDT Fannie Wu MD [facility] [address] [address], * (ABNORMAL) Basic Metabolic Panel (04/05/2024 3:02 AM CDT) SODIUM 136 136 - 145 mmol/L 04/05/2024 4:00 AM CDT [facility] POTASSIUM 4.5 3.5 - 5.1 mmol/L 04/05/2024 4:00 AM CDT [facility] CHLORIDE 103 98 - 107 mmol/L 04/05/2024 4:00 AM CDT [facility] CO2,TOTAL 23 22 - 29 mmol/L 04/05/2024 4:00 AM CDT [facility] ANION GAP 10 5 - 18 04/05/2024 4:00 AM T [facility] GLUCOSE 199(H) 70 - 99 mg/dL 04/05/2024 4:00 AM CDT [facility] CALCIUM 8.6(L) 8.8 - 10.2 mg/dL 04/05/2024 4:00 AM CDT [facility] BUN 13 8 - 23 mg/dL 04/05/2024 4:00 AM T [facility] CREATININE 0.91 0.70 - 1.20 mg/dL 04/05/2024 4:00 AM T [facility] BUN/CREAT RATIO 14 10 - 20 4:00 AM T [facility] eGFR 86(L) >90 mL/min/1.7 3m2 04/05/2024 4:00 AM T [facility] Comment:As of 2021, eG FR is calculated by the CKD-EPI creatinine equation without race adjustment. ??eGFR can be influenced by muscle mass, exercise, and diet. ??The reported eGFR is an estimation only and is only applicable if the renal function is stable. Blood BLOOD SPECIMEN / Unknown Butterfly / Unknown 04/05/2024 3:02 AM CDT 04/05/2024 3:10 AM CDT Valery Duckworth NP [facility]STRY [facility] [address] [place] [address], * SCAN-CARDIAC STRIP (04/05/2024 12:41 AM CDT) Scanner OTHER * SCAN-CARDIAC STRIP (04/04/2024 4:04 PM CDT) Scanner OTHER * EKG 12 Lead - PRN (04/04/2024 12:11 PM CDT) Only the most recent of6 resultswithin the time period is included. Interpretation Sinus rhythm with 1st degree A-V block Right bundle branch block Left anterior fascicular block Bifascicular block Abnormal ECG When compared with ECG of 04-APR-2024 12:10, No significant change was found BEYOND NOW Ventricular Rate 69 BPM BEYOND NOW Atrial Rate 69 BPM BEYOND NOW P-R Interval 242 ms BEYOND NOW QRS Duration 154 ms BEYOND NOW QT 440 ms BEYOND NOW QTc 471 ms BEYOND NOW P Randolph -13 degrees BEYOND NOW R Randolph -65 degrees BEYOND NOW T Randolph degrees BEYOND NOW 04/04/2024 12:1 1 PM CDT 04/05/2024 9:16 AM CDT Susan Guzmán MD EKG ORD BEYOND NOW [place], [place] * CVL CORONARY ANGIOGRAM POSS PCI (04/04/2024 9:43 AM CDT) Anatomical Region Laterality Modality Other 04/04/2024 9:43 AM CDT Narrative Transcriptions Ashish Pinto MD - 04/04/2024 10:24 AM CDT [facility] Cardiac Catheterization Report Name: ANISA HUANG Event Date: 04/04/2024 09:43 [employer] ID #: [id number] ADALI #: [id number] Patient Class: Inpatient Diagnostic Physician: ASHISH PINTO [facility] Referring Physician: Date: 1945 Gender: Male Age: 78 Summary/Conclusions PRESENTATION / INDICATIONS * NonSTEMI * ? HCM * type II DM VASCULAR ACCESS * Using ultrasound guidance and a percutaneous technique, the right radialartery was accessed. Ultrasound was used to confirm vessel patency,localizing needle into the lumen of the vessel. An image was saved for themedical record. DIAGNOSTIC - CORONARY * Co-dominant coronary artery system DIAGNOSTIC SUMMARY ? 60% tubular stenosis in the Proximal LAD ? 80% discrete stenosis in the Mid LAD ? 70% stenosis in the Distal LAD ? 50% stenosis in the Distal LAD ? 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 90% tubular stenosis in the 1st Diagonal ? 90% tubular stenosis in the 1st Marginal ? 100% chronic stenosis in the RPDA, L-R collaterals ? The RCA has an abnormal origin, deep and anterior LEFT VENTRICULAR FUNCTION ? LV Pressure = 108/10/18, pull back show 14 mmHg difference (nosimultaneous gradient obtained) RECOMMENDATIONS & PLAN * Consider surgical revascularization: LAD, OM, myocardial bridge ? septalreduction - versus * Consider staged intervention of the LAD distal to bridge, and theMarginal, OM1 Heart team discussion Consent & [place] Protocol The risks, benefits, and alternatives of the procedure were discussed withthe patient and written informed consent was obtained. [place] protocol was followed. TIME OUT conducted just prior tostarting procedure confirmed patient identity, site/side, procedure,patient position, and availability of correct equipment and implants (ifapplicable). Staff Name Title ASHISH PINTO Diagnostic Fighting Vehicle Systems Maintainer Rajinder Nichole RN Nurse Ninoska Zavala RT(R) ScrRaza Cochran RT(R) Monitor Procedures ? Ultrasound Guided Vascular Access ? Coronary Angiogram Diagnostic Findings * Left Anterior Descending ? 60% tubular stenosis in the Proximal LAD. ? 80% discrete stenosis in the Mid LAD. ? 70% stenosis in the Distal LAD. ? 50% stenosis in the Distal LAD. ? 90% tubular stenosis in the 1st Diagonal. * Circumflex ? 90% tubular stenosis in the 1st Marginal. * Right Coronary Artery ? 100% chronic stenosis in the RPDA. Lesion Information Lesion # Vessel Segment Lesion Length Lesion Details 1st Marginal Mid LAD Proximal LAD 1st Diagonal Distal LAD Distal LAD RPDA Hemodynamics State: Baseline Pressures (mmHg) Site Systolic Diastolic End Diastolic A Wave V Wave Mean AO 100 55 77 LV 94 8 21 LV 103 10 18 AO 105 64 82 Procedure Details Estimated Blood Loss: < 30 ml Specimen Collected: None Level of Sedation Achieved: Moderate Procedure Start: 09:43 Procedure End: 10:01 Procedure Time: 18 min Fluoroscopy Time: 1.9 min Cumulative Air Kerma: 287 mGy DAP: 1900 uGy/M2 Contrast: Omnipaque (low-osmolar), 40 ml Physiologic Data Actual VO2: 266.65 Weight: 108.8 kg BSA: 2.26 m2 Vascular Access Time Access Sheath Size 09:43 Right Radial Artery, sheath inserted Medications Ordered and Administered Start Time Stop Time Medication Dose Units Route Ordered By Given By 09:41 Versed 1 mg IV Ashish Pinto David RN 09:41 Fentanyl 50 mcg IV Ashish Pinto David RN 09:43 1% Lidocaine 0.5 ml Subcut Ashish Pinto Mario I personally monitored the patient?s conscious sedation during theprocedure. Conscious sedation starts with the first sedation medication dose ofFentanyl or Versed and ends when the procedure is completed, the patientis stable for recovery status, and the physician or other qualified healthcare professional providing the sedation ends personal [id number] time with the patient. The medications listed above were verbally ordered by me and read back tome as documented above. Refer to the procedure log report for additional case details. electronically signed on 04/04/2024 10:24:08 AM with status of Final Ashish Pinto MD [facility] [address] [place] [address] (p) (f) Provider Referring CV IMAGING * SCAN-CARDIAC STRIP (04/04/2024 8:37 AM CDT) Scanner OTHER * SCAN-OPERATIVE/PROCEDURE REPORT (04/04/2024 12:00 AM CDT) Narrative 04/04/2024 12:00 AM CDT Ordered by an unspecified provider. Other Clinical Staff OTHER * BUN (04/03/2024 5:00 PM CDT) Only the most recent of2 resultswithin the time period is included. BUN 16 8 - 23 mg/dL 04/03/2024 5:59 PM CDT [facility] Blood BLOOD SPECIMEN / Unknown Butterfly / Unknown 04/03/2024 5:00 PM CDT 04/03/2024 5:07 PM CDT Valery Duckworth NP CHEMISTRY [facility] [address] [address], * (ABNORMAL) CREATININE (04/03/2024 5:00 PM CDT) Only the most recent of2 resultswithin the time period is included. eGFR 89(L) >90 mL/min/1.7 3m2 04/03/2024 5:59 PM CDT [facility] Comment:As of 2021, eG FR is calculated by the CKD-EPI creatinine equation without race adjustment. ??eGFR can be influenced by muscle mass, exercise, and diet. ??The reported eGFR is an estimation only and is only applicable if the renal function is stable. CREATININE 0.86 0.70 - 1.20 mg/dL 04/03/2024 5:59 PM CDT [facility] Blood BLOOD SPECIMEN / Unknown Butterfly / Unknown 04/03/2024 5:00 PM CDT 04/03/2024 5:07 PM CDT Valery Duckworth NP CHEMISTRY [facility] [address] [address], * PROTIME-INR (04/03/2024 5:00 PM CDT) INR 1.1 <1.3 04/03/2024 5:30 PM CDT [facility] PROTIME 11.8 10.3 - 12.3 sec 04/03/2024 5:30 PM CDT [facility] Blood BLOOD SPECIMEN / Unknown Butterfly / Unknown 04/03/2024 5:00 PM CDT 04/03/2024 5:07 PM CDT Narrative [facility] - 04/03/2024 5:30 PM CDT ?Therapeutic Range 2.0-3.0 for most anticoagulated patients 2.5-3.5 or 4.0 for high risk patients The INR is only used for patients on stable oral anticoagulant therapy. It makes no significant contribution to the diagnosis or treatment of patients whose Protime is prolonged for other reasons. INR results are increased when heparin levels exceed 1.0 U/mL, which corresponds to an aPTT >125 seconds if the patient is on UFH. Valery Salty Duckworth NP HEMATOLOGY [facility] [address] [place] [address], * ECHO TTE COMPLETE WO CONTRAST (04/03/2024 11:17 AM CDT) AORTIC VALVE MEAN PG 14 mmHg EJECTION FRACTION 67 % LVEDD 3.8 cm Anatomical Region Laterality Modality Ultrasound 04/03/2024 10:1 8 AM CDT Narrative 04/03/2024 11:33 AM CDT ECHOCARDIOGRAM ANISA HUANG ?Accession#: ?? [id number] : ?1945 78 years Study Date: ?? 04/03/2024 10:18:59 AM Gender: M ? BP: ? 163/89 mmHg Height: 182.00 cm ? BSA: ?2.29 m? ? ? Weight: 108.00 kg ? Tech: ? MH ?Referring MD: SUSAN GUZMÁN Site: ? [facility] Reading Location: [facility] Patient Location: Inpatient. Procedure: 2D, Color Doppler and Spectral Doppler. Indication for study: Chest Pain Cardiac Rhythm: Regular.Study quality: Good. Final Impressions: 1. Normal left ventricular size, severely increased wall thickness, normal global systolic function, calculated EF of 67 %. 2. Severe asymmetric left ventricular hypertrophy. LVOT peak gradient of 18 mmHg with Valsalva. 3. Basal inferior segment and basal septum segment are abnormal. 4. The ascending aorta is dilated with a maximal diameter of 4.0 cm. 5. The aortic valve is calcified, mild stenosis and no regurgitation. 6. The mitral valve is sclerotic, no mitral regurgitation. Chamber Sizes and Function Normal left ventricular size, severely increased wall thickness, normal global systolic function, calculated EF of 67 %. Severe asymmetric left ventricular hypertrophy. Left atrial size is normal. Right ventricular cavity size is normal, global systolic RV function is normal. The right atrium is normal. Right atrial volume index is 20 ml/m? ? ?. The pulmonary artery is of normal size and origin. The sinus of Valsalva is normal sized. The ascending aorta is dilated. The basal inferior segment and basal septum segment are hypokinetic. Valves, RV Pressures and Diastolic Function The aortic valve is calcified, mild stenosis and no regurgitation. The mitral valve is sclerotic, no mitral regurgitation. Indeterminate pattern of LV diastolic filling. The tricuspid valve is normal in structure. Tricuspid regurgitation is regurgitation is not evident. There is normal estimated pulmonary pressure by tricuspid regurgitation velocity and right atrial pressure. The pulmonic valve is normal. No pulmonary regurgitation. Pulmonary vein flow not well visualized. Masses, Effusion, Shunts There is no pericardial effusion. The inferior vena cava is normal sized, respiratory size variation greater than 50%. No left to right shunting was detected by limited color flow Doppler interrogation of the interatrial septum. The ratio of pulmonic flow to systemic flow (Qp/Qs ratio) is 0.80. MEASUREMENTS AND CALCULATIONS 2-D Measurements and LV Function: LVID (d) 3.8 cm Planimetered EF 67 % LVID (s) 2.3 cm LV FS% (2D) ? 39 % IVS (d) ??2.0 cm LVOT diameter ?? 2.0 cm LVPW (d) 1.2 cm HR ?68 bpm Ao Sinus 3.7 cm LA Vol index ?28 ml/m2 Asc Ao ?? 4.0 cm RA Vol index ?20 ml/m2 LA ? 4.9 cm Diastology: Mitral ?Tissue Doppler E Peak 0.5 m/s ??e', Septum ? 0.05 m/s A Peak 0.9 m/s ??e', Lateral ?0.06 m/s E/A ?0.6 ?E/e' Average ?? 9.09 DT ? 385 msec Aortic Valve: Vmax ? 2.3 m/s ??DONTAE (V) ?? 2.29 cm? ? ? VTI ?0.50 m ?? DONTAE (I) ?? 2.39 cm? ? ? LVOT V max 1.6 m/s ??Max PG ?21 mmHg LVOT VTI ?? 0.36 m ?? Mean PG ?? 14 mmHg SV ? 119 ml ?? Dim Index 0.72 SV index ?? 52 ml/m? ? ? CO ?8.1 l/min ?CI ?3.5 l/min/m? ? ? Mitral Valve: MVA ? 2.0 cm? ? ? MV P 1/2 ??112 msec MV Mean G 2 mmHg Tricuspid Valve and estimated PA pressures: TV E VMax 0.4 m/s TAPSE ? 1.6 cm Pulmonic Valve: PV Vmax 1.2 m/s PV AT ?? 48 msec Shunt: Qp/Qs: 0.8 . This study was interpreted by an [facility] accredited facility. ??Final ?? Procedure Note Rajinder Phan MD - 04/03/2024 ECHOCARDIOGRAM ANISA HUANG : 1945 78 years Study Date: 04/03/2024 10:18:59 AM Gender: M BP: 163/89 mmHg Height: 182.00 cm BSA: 2.29 m? ? ? Weight: 108.00 kg Tech: MH Referring MD: SUSAN GUZMÁN Site: [facility] Reading Location: [facility] IP Patient Location: Inpatient. Procedure: 2D, Color Doppler and Spectral Doppler. Indication for study: Chest Pain Cardiac Rhythm: Regular.Study quality: Good. Final Impressions: 1. Normal left ventricular size, severely increased wall thickness,normal global systolic function, calculated EF of 67 %. 2. Severe asymmetric left ventricular hypertrophy. LVOT peak gradient of18 mmHg with Valsalva. 3. Basal inferior segment and basal septum segment are abnormal. 4. The ascending aorta is dilated with a maximal diameter of 4.0 cm. 5. The aortic valve is calcified, mild stenosis and no regurgitation. 6. The mitral valve is sclerotic, no mitral regurgitation. Chamber Sizes and Function Normal left ventricular size, severely increased wall thickness, normalglobal systolic function, calculated EF of 67 %. Severe asymmetric leftventricular hypertrophy. Left atrial size is normal. Right ventricularcavity size is normal, global systolic RV function is normal. The rightatrium is normal. Right atrial volume index is 20 ml/m? ? ?. The pulmonaryartery is of normal size and origin. The sinus of Valsalva is normalsized. The ascending aorta is dilated. The basal inferior segment andbasal septum segment are hypokinetic. Valves, RV Pressures and Diastolic Function The aortic valve is calcified, mild stenosis and no regurgitation. Themitral valve is sclerotic, no mitral regurgitation. Indeterminate patternof LV diastolic filling. The tricuspid valve is normal in structure.Tricuspid regurgitation is regurgitation is not evident. There is normalestimated pulmonary pressure by tricuspid regurgitation velocity and rightatrial pressure. The pulmonic valve is normal. No pulmonary regurgitation.Pulmonary vein flow not well visualized. Masses, Effusion, Shunts There is no pericardial effusion. The inferior vena cava is normal sized,respiratory size variation greater than 50%. No left to right shunting wasdetected by limited color flow Doppler interrogation of the interatrialseptum. The ratio of pulmonic flow to systemic flow (Qp/Qs ratio) is0.80. MEASUREMENTS AND CALCULATIONS 2-D Measurements and LV Function: LVID (d) 3.8 cm Planimetered EF 67 % LVID (s) 2.3 cm LV FS% (2D) 39 % IVS (d) 2.0 cm LVOT diameter 2.0 cm LVPW (d) 1.2 cm HR 68 bpm Ao Sinus 3.7 cm LA Vol index 28 ml/m2 Asc Ao 4.0 cm RA Vol index 20 ml/m2 LA 4.9 cm Diastology: Mitral Tissue Doppler E Peak 0.5 m/s e', Septum 0.05 m/s A Peak 0.9 m/s e', Lateral 0.06 m/s E/A 0.6 E/e' Average 9.09 DT 385 msec Aortic Valve: Vmax 2.3 m/s DONTAE (V) 2.29 cm? ? ? VTI 0.50 m DONTAE (I) 2.39 cm? ? ? LVOT V max 1.6 m/s Max PG 21 mmHg LVOT VTI 0.36 m Mean PG 14 mmHg SV 119 ml Dim Index 0.72 SV index 52 ml/m? ? ? CO 8.1 l/min CI 3.5 l/min/m? ? ? Mitral Valve: MVA 2.0 cm? ? ? MV P 1/2 112 msec MV Mean G 2 mmHg Tricuspid Valve and estimated PA pressures: TV E VMax 0.4 m/s TAPSE 1.6 cm Pulmonic Valve: PV Vmax 1.2 m/s PV AT 48 msec Shunt: Qp/Qs: 0.8 . This study was interpreted by an [facility] accredited facility. Final Susan Guzmán MD ECHO ORD * (ABNORMAL) LIPID PANEL (04/03/2024 6:34 AM CDT) [facility] Signature CHOLESTEROL,TOTAL 127 100 - 199 mg/dL 04/03/2024 3:[address] [facility] Comment: Cholesterol, Total Reference Ranges Desirable <200 mg/dL Borderline 200-239 mg/dL High >=240 mg/dL TRIGLYCERIDES 212(H) <150 mg/dL 04/03/2024 3:17 PM T [facility] HDL CHOLESTEROL 37(L) >40 mg/dL 3:17 PM [facility] NON-HDL CHOLESTEROL 90 <145 mg/dl 04/03/2024 3:17 PM CDT [facility] CHOL/HDL RATIO 3.43 <4.50 04/03/2024 3:17 PM CDT [facility] LDL CHOLESTEROL 48 <=130 mg/dL 04/03/2024 3:17 PM CDT [facility] VLDL CHOLESTEROL 42(H) <=30 mg/dL 04/03/2024 3:17 PM CDT [facility] Blood BLOOD SPECIMEN / Unknown Venipuncture / Unknown 04/03/2024 6:34 AM CDT 04/03/2024 6:55 AM CDT Valery Duckworth NP CHEMISTRY [facility] [address] [place] [address], * SCAN-CARDIAC STRIP (04/03/2024 1:11 AM CDT) Scanner OTHER * SCAN-CARDIAC STRIP (04/02/2024 6:35 PM CDT) Scanner OTHER * (ABNORMAL) TROPONIN T (HS) ONE TIME (04/02/2024 5:01 PM CDT) TROPONIN T HS 278(H) 6-15 ng/L ng/L 04/02/2024 5:47 PM CDT [facility] Blood BLOOD SPECIMEN / Unknown Non-Lab Venipuncture / Unknown 04/02/2024 5:01 PM CDT 04/02/2024 5:11 PM CDT Narrative [facility] - 04/02/2024 5:47 PM CDT [id number] [...] low risk in emergency department patient population. Susan Guzmán MD [facility] [address] [place] [address], * (ABNORMAL) CBC with Platelets no Differential (04/02/2024 5:01 PM CDT) Pathologist [facility] WHITE BLOOD COUNT 10.3 4.5 - 11.0 thou/cu mm 04/02/2024 5:21 PM CDT [facility] RED BLOOD COUNT 5.66 4.30 - 5.90 mil/cu mm 04/02/2024 5:21 PM CDT [facility] HEMOGLOBIN 16.7 13.5 - 17.5 g/dL 04/02/2024 5:21 PM CDT [facility] HEMATOCRIT 49.3 37.0 - 53.0 % 04/02/2024 5:21 PM CDT [facility] MCV 87 80 - 100 fL 04/02/2024 5:21 PM CDT [facility] MCH 29.5 26.0 - 34.0 pg 04/02/2024 5:21 PM CDT [facility] MCHC 33.9 32.0 - 36.0 g/dL 04/02/2024 5:21 PM CDT [facility] RDW 12.8 11.5 - 15.5 % 04/02/2024 5:21 PM CDT [facility] PLATELET COUNT 218 140 - 440 thou/cu mm 04/02/2024 5:21 PM CDT [facility] MPV 12.0(H) 6.5 - 11.0 fL 04/02/2024 5:21 PM CDT [facility] NRBC 0.0 % 04/02/2024 5:21 PM CDT [facility] ABS NRBC 0.0 thou /cu mm 04/02/2024 5:21 PM CDT [facility] Blood BLOOD SPECIMEN / Unknown Non-Lab Venipuncture / Unknown 04/02/2024 5:01 PM CDT 04/02/2024 5:11 PM CDT Anna Cook NP HEMATOLOGY [facility] [address] [place] [id number], * Sodium (04/02/2024 5:01 PM CDT) SODIUM 138 136 - 145 mmol/L 04/02/2024 5:51 PM CDT [facility] Blood BLOOD SPECIMEN / Unknown Non-Lab Venipuncture / Unknown 04/02/2024 5:01 PM CDT 04/02/2024 5:11 PM CDT Anna Cook NP CHEMISTRY [facility] [address] [place] [address], * Potassium (04/02/2024 5:01 PM CDT) POTASSIUM 3.8 3.5 - 5.1 mmol/L 04/02/2024 5:51 PM CDT [facility] Blood BLOOD SPECIMEN / Unknown Non-Lab Venipuncture / Unknown 04/02/2024 5:01 PM CDT 04/02/2024 5:11 PM CDT Anna Cook ROUTING EQUIPMENT TENDER CHEMISTRY [facility] [address] [place] [address], from Last 3 Months Advance Directives * Full Code (Latest Code Status on File) Date Activated Date Inactivated Comments 04/02/2024 4:50 PM 04/06/2024 1:50 PM Question Answer Comments Code Status Discussion: Reviewed Preferences Care Teams Bearing Ring Assembler Relationship Specialty Start Date End Date Miriam Mcfadden MD [id number] [place] [address] PCP - General Family Practice 09/17/21
== END 2024-04-09 11:46 | disposition home or self-care (01) ==
LOC: LKVREF 11:46
PROVIDERS: PCP Family Medicine; Visit Provider Family Medicine
DX: I21.4 Non-ST elevation (NSTEMI) myocardial infarction (principal); I10 Essential (primary) hypertension; E78.5 Hyperlipidemia, unspecified; E11.9 Type 2 diabetes mellitus without complications; I25.10 Atherosclerotic heart disease of native coronary artery without angina pectoris
CPT/HCPCS: 80053

== ENCOUNTER 2024-04-14 11:55 | Outpatient (CLI) | payer OTHER, SELFPAY ==
--- OUTSIDE RECORDS SUMMARY | 2024-04-14 11:58 | XMS_ITS | Clinical Summary ---
Author Organization [facility] Address [address] [place] [id number] Care Team Providers Care Hospitality Specialist Name Role Phone Ritchie Mcfadden MD Primary [...] diabetes mellitus with hyperosmolarity without coma, unspecified snf insulin use status Use to calibrate blood glucose monitor as directed. 1 each 02/20/2018 Active blood glucose monitoring (NO BRAND SPECIFIED) meter device kitIndications:Type 2 diabetes mellitus with hyperosmolarity without coma, unspecified snf insulin use status Use to test blood sugar 4 times daily or as directed. 1 kit 02/20/2018 Active blood glucose (NO BRAND SPECIFIED) lancets standardIndications:T ype 2 diabetes mellitus with hyperosmolarity without coma, unspecified snf insulin use status Use to test blood sugar 4 times daily or as directed. 100 each 11 02/20/2018 Active blood glucose monitoring (NO BRAND SPECIFIED) test stripIndications:Type 2 diabetes mellitus with hyperosmolarity without coma, unspecified snf insulin use status Use to test blood sugars 4 times daily or as directed 100 strip 1 02/20/2018 Active hydrochlorothiazide (MICROZIDE) 12.5 MG capsuleIndications:Be nign essential hypertension Take 1 capsule (12.5 mg) by mouth daily 30 capsule 02/21/2018 Active insulin glargine (LANTUS SOLOSTAR) 100 UNIT/ML penIndications:Type 2 diabetes mellitus with hyperosmolarity without coma, unspecified intermediate accountant insulin use status Inject 15 Units Subcutaneous [...] CDT Plan of Treatment Not on file Advance Directives For more information, please contact: [phone] * Full Code (Latest Code Status on File) Date Activated Date Inactivated Comments 02/20/2018 5:38 PM 02/21/2018 7:58 PM Care Teams Hospitality Specialist Relationship Specialty Start Date End Date Ritchie Mcfadden MD [facility] [address] [place] [address] PCP - General Family Practice 02/21/18
--- OUTSIDE RECORDS SUMMARY | 2024-04-14 11:58 | XMS_ITS | Clinical Summary ---
Author Organization [facility] Address [place], [place] [address] Care Team Providers Care County Director Name Role Phone Miriam Mcfadden MD Primary Care Provider [phone] Allergies No known active allergies Medications Medication [...] type, unspecified whether angina present, unspecified whether ugashik or transplanted heart Take 1 Tablet (30 mg) by mouth once daily. 90 Tablet 1 4 Active nitroglycerin (NITROSTAT) 0.4 mg sublingual tabletIndication s:NSTEMI (non-ST elevated myocardial infarction) (HC),Coronary artery disease, unspecified vessel or lesion type, unspecified whether angina present, unspecified whether ugashik or transplanted heart Place 1 Tablet (0.4 [...] type, unspecified whether angina present, unspecified whether ugashik or transplanted heart Take 1 Tablet (90 [...] type, unspecified whether angina present, unspecified whether ugashik or transplanted heart Take 1 Tablet (90 [...] - 04/06/2024 11:40 AM CDT Hospital Encounter [facility] [address] [place] [address] [facility], [facility] Of [place], MD Bryce Sargent, MD Rhonda Sosa, Jose Manuel Person MD NSTEMI (non-ST elevated myocardial infarction) (HC) (Primary Dx); Cardiovascular symptoms; Coronary artery disease, unspecified vessel or lesion type, unspecified whether angina present, unspecified whether ugashik or transplanted heart; Constipation, unspecified constipation type; Hypertension Discharge Disposition: Home Self Care 04/02/2024 Telephone [employer] [facility] [place] [facility] [place] [address] [facility] [address] [place] [address] Rajinder Phan MD from Last 3 Months Immunizations Name Administration Dates Next Due COVID-19 vaccine (BioGasol-Bio NTech 30mcg/0.3mL) DONALD VAZQUEZ 07/17/2021,11/30/2020,11/09/2020 Social History [...] Description 05/19/2024 10:00 AM CDT Office [place] [facility] [place] [address] [facility] [address] [place], [place] [id number] Joana Jackson NP [address] [facility] [address] [place] [address] Health Maintenance Due Date Last Done Comments [...] 440 thou/cu mm 04/06/2024 8:04 AM CDT [facility] MPV 11.7(H) 6.5 - 11.0 fL 04/06/2024 8:04 AM CDT [facility] Blood BLOOD SPECIMEN / Unknown Butterfly / Unknown 04/06/2024 7:23 AM CDT 04/06/2024 7:43 AM CDT Narrative [facility] - 04/06/2024 8:04 AM CDT Every morning while on IV heparin. Every morning while on IV heparin. Necessary every morning while on IV heparin. Valery Duckworth NP [facility] [address] [place] [address], [place] * HEMOGLOBIN (04/06/2024 7:23 AM CDT) Only the most recent of4 resultswithin the time period is included. HEMOGLOBIN 15.7 13.5 - 17.5 g/dL 04/06/2024 8:04 AM CDT [facility] MCV 88 80 - 100 fL 04/06/2024 8:04 AM CDT [facility] Blood BLOOD SPECIMEN / Unknown Butterfly / Unknown 04/06/2024 7:23 AM CDT 04/06/2024 7:43 AM CDT [facility] - 04/06/2024 8:04 AM CDT Every morning while on IV heparin. Every morning while on IV heparin. Necessary every morning while on IV heparin. Valery Duckworth NP HEMATOLOGY Performing Organization Address [facility]/ZIP Co de Phone Number [facility] [address] [address], [place] * HEMATOCRIT (04/06/2024 7:23 AM CDT) Only the most recent of4 resultswithin the time period is included. HEMATOCRIT 48.0 37.0 - 53.0 % 04/06/2024 8:04 AM CDT [facility] Blood BLOOD SPECIMEN / Unknown Butterfly / Unknown 04/06/2024 7:23 AM CDT 04/06/2024 7:43 AM CDT [facility] - 04/06/2024 8:04 AM CDT Every morning while on IV heparin. Every morning while on IV heparin. Necessary every morning while on IV heparin. Valery Duckworth NP HEMATOLOGY Performing Organization Address City/[facility]/ZIP Co de Phone Number [facility] [address] [place] [address], [place] * (ABNORMAL) GLUCOSE METER (04/06/2024 6:10 AM CDT) Only the most recent of15 resultswithin the time period is included. GLUCOSE METER 153(H) 65 - 100 mg/dL 04/06/2024 6:11 AM CDT [facility] Blood BLOOD SPECIMEN / Unknown 04/06/2024 6:10 AM CDT 04/06/2024 6:11 AM CDT Jose Manuel Ellis MD CHEMISTRY Performing Organization Address [facility] Co de Phone Number [facility] [address] [place] [address], * APTT (04/05/2024 3:52 PM CDT) Only the most recent of5 resultswithin the time period is included. APTT 30 28 - 36 sec 04/05/2024 4:19 PM CDT [facility] Blood BLOOD SPECIMEN / Unknown Butterfly / Unknown 04/05/2024 3:52 PM CDT 04/05/2024 3:58 PM CDT Narrative [facility] - 04/05/2024 4:19 PM CDT Therapeutic Range: 57-87 seconds Fannie Wu MD HEMATOLOGY Performing Organization Address [facility] Co de Phone Number [facility] [address] [place] [address], * SCAN CORRESP-EKG RESULTS (04/05/2024 2:40 PM CDT) Narrative 04/05/2024 2:40 PM CDT Ordered by an unspecified provider. Other Clinical Staff OTHER * SCAN CORRESP-IMAGING (04/05/2024 2:40 PM CDT) Anatomical Region Laterality Modality Other Narrative 04/05/2024 2:40 PM CDT Ordered by an unspecified provider. Other Clinical Staff OTHER * (ABNORMAL) ACTIVATED CLOTTING TIME THO884 ACT (04/05/2024 11:03 AM CDT) Only the most recent of3 resultswithin the time period is included. ACTIVATED CLOTTING TIME, POCT 384(H) 74 - 125 sec 04/06/2024 5:07 PM CDT [facility] Blood BLOOD SPECIMEN / Unknown 04/05/2024 11:03 AM CDT 04/06/2024 5:07 PM CDT [facility] HEMATOLOGY [facility] [address] [place] [address], * CVL CORONARY ANGIOGRAM POSS PCI (04/05/2024 10:46 AM CDT) Anatomical Region Laterality Modality Other 04/05/2024 10:4 6 AM CDT Narrative Transcriptions Ashish Pinto MD - 04/05/2024 4:12 PM CDT [facility] [place] [facility] Cardiac Catheterization Report Name: ANISA HUANG Event Date: 04/05/2024 10:46 [facility] ID #: [id number] ADALI #: [id number] Patient Class: Inpatient Diagnostic Physician: ASHISH PINTO [facility] [place] [facility] Interventional Physician: ASHISH PINTO [facility] Referring Physician: Primary Care Physician: MIRIAM MCFADDEN [...] and 2.5mm x 18mm Drug Eluting Stent(Jay Parke) to 1st Marginal, post stenosis 0% RECOMMENDATIONS & PLAN * Medical Rx - Aspirin: 81 mg daily * Ticagrelor 90 mg bid for one year Consent & Dearborn Protocol The risks, benefits, and alternatives of the procedure were discussed withthe patient and written informed consent was obtained. Dearborn protocol was followed. TIME OUT conducted just prior tostarting procedure confirmed patient identity, site/side, procedure,patient position, and availability of correct equipment and implants (ifapplicable). Staff Name Title ASHISH PINTO Level Vial Inspector And Tester Dio Bliss RN Nurse Domingo Ambrosio CVT Scrub Hanny Webber RTR Monitor Preethi Stevens CVT Ginning Operator ASHISH PINTO Diagnostic Traffic Operator Procedures ? Ultrasound Guided Vascular Access ? [...] 1 1st Marginal Balloon BLLN EUPHORA RX [id number] 1 1st Marginal Drug Eluting Stent FAUSTINO JAY Parke RX [id number] Procedure Details Estimated Blood Loss: < 30 [...] mcg IA Ashish Pinto Mario 10:53 Heparin 12821 units IV Ashish Pinto Nathan RN 11:04 Nitroglycerin 100 mcg IC Ashish Pinto Mario I personally monitored the patient?s conscious sedation during theprocedure. Conscious sedation starts with the first sedation medication dose ofFentanyl or Versed and ends when the procedure is completed, the patientis stable for recovery status, and the physician or other qualified healthcare professional providing the sedation ends personal sarsdlszrkhcrd-ed-mtlv time with the patient. The medications listed above were verbally ordered by me and read back tome as documented above. Refer to the procedure log report for additional case details. electronically signed on 04/05/2024 4:12:59 PM with status of Final Ashish Pinto MD [facility] [address] [address] (p) (f) Provider Referring CV IMAGING * SCAN-CARDIAC STRIP (04/05/2024 10:11 AM CDT) Scanner OTHER * MAGNESIUM (04/05/2024 3:02 AM CDT) Only the most recent of2 resultswithin the time period is included. MAGNESIUM 2.1 1.6 - 2.4 mg/dL 04/05/2024 4:00 AM CDT [facility] Blood BLOOD SPECIMEN / Unknown Butterfly / Unknown 04/05/2024 3:02 AM CDT 04/05/2024 3:10 AM CDT Fannie Wu MD [facility]MISTRY [facility] [address] [address], * (ABNORMAL) Basic Metabolic Panel (04/05/2024 3:02 AM CDT) SODIUM 136 136 - 145 mmol/L 04/05/2024 4:00 AM CDT [facility] POTASSIUM 4.5 3.5 - 5.1 mmol/L 04/05/2024 4:00 AM CDT [facility] CHLORIDE 103 98 - 107 mmol/L 04/05/2024 4:00 AM CDT [facility] CO2,TOTAL 23 22 - 29 mmol/L 04/05/2024 4:00 AM CDT [facility] ANION GAP 10 5 - 18 04/05/2024 4:00 AM T [facility] GLUCOSE 199(H) 70 - 99 mg/dL 04/05/2024 4:00 AM CDT [facility] CALCIUM 8.6(L) 8.8 - 10.2 mg/dL 04/05/2024 4:00 AM CDT [facility] BUN 13 8 - 23 mg/dL 04/05/2024 4:00 AM T [facility] CREATININE 0.91 0.70 - 1.20 mg/dL 04/05/2024 4:00 AM T [facility] BUN/CREAT RATIO 14 10 - 20 4:00 AM T [facility] eGFR 86(L) >90 mL/min/1.7 3m2 04/05/2024 4:00 AM T [facility] Comment:As of 2021, [...] 3:10 AM CDT Valery Duckworth NP [facility]Y [facility] [address] [place] [address], * SCAN-CARDIAC STRIP (04/05/2024 12:41 AM CDT) [...] NOW QTc 471 ms BEYOND NOW P Jackson -13 degrees BEYOND NOW R Jackson -65 degrees BEYOND NOW T Jackson degrees BEYOND NOW 04/04/2024 12:1 1 PM CDT 04/05/2024 9:16 AM CDT Susan Guzmán MD EKG ORD BEYOND NOW [place], [place] * CVL CORONARY ANGIOGRAM POSS PCI (04/04/2024 9:43 AM CDT) Anatomical Region Laterality Modality Other 04/04/2024 9:43 AM CDT Narrative Transcriptions Ashish Pinto MD - 04/04/2024 10:24 AM CDT [facility] [facility] Cardiac Catheterization Report Name: ANISA HUANG Event Date: 04/04/2024 09:43 [facility] ID #: [id number] ADALI #: [id number] Patient Class: Inpatient Diagnostic Physician: ASHISH PINTO [facility] [facility] Referring Physician: Date: 1945 Gender: Male Age: [...] theMarginal, OM1 Heart team discussion Consent & Dearborn Protocol The risks, benefits, and alternatives of the procedure were discussed withthe patient and written informed consent was obtained. Dearborn protocol was followed. TIME OUT conducted just prior tostarting procedure confirmed patient identity, site/side, procedure,patient position, and availability of correct equipment and implants (ifapplicable). Staff Name Title ASHISH PINTO Diagnostic Traffic Operator Rajinder Nichole RN Nurse Ninoska Zavala RT(R) [...] healthcare professional providing the sedation ends personal ytikxyhcworjsh-eh-lasw time with the patient. The medications listed above were verbally ordered by me and read back tome as documented above. Refer to the procedure log report for additional case details. electronically signed on 04/04/2024 10:24:08 AM with status of Final Ashish Pinto MD [facility] [address] [place] [address] [place] [address] (p) (f) Provider Referring CV IMAGING * SCAN-CARDIAC STRIP (04/04/2024 8:37 AM CDT) Scanner OTHER * SCAN-OPERATIVE/PROCEDURE REPORT (04/04/2024 12:00 AM CDT) Narrative 04/04/2024 12:00 AM CDT Ordered by an unspecified provider. Other Clinical Staff OTHER * BUN (04/03/2024 5:00 PM CDT) Only the most recent of2 resultswithin the time period is included. BUN 16 8 - 23 mg/dL 04/03/2024 5:59 PM CDT [facility] Blood BLOOD SPECIMEN / Unknown Butterfly / Unknown 04/03/2024 5:00 PM CDT 04/03/2024 5:07 PM CDT Valery Duckworth NP CHEMISTRY [facility] [address] [address], * (ABNORMAL) CREATININE (04/03/2024 5:00 PM CDT) Only the most recent of2 resultswithin the time period is included. eGFR 89(L) >90 mL/min/1.7 3m2 04/03/2024 5:59 PM CDT [facility] Comment:As of 2021, eG FR is calculated by the CKD-EPI creatinine equation without race adjustment. ??eGFR can be influenced by muscle mass, exercise, and diet. ??The reported eGFR is an estimation only and is only applicable if the renal function is stable. CREATININE 0.86 0.70 - 1.20 mg/dL 04/03/2024 5:59 PM CDT [facility] Blood BLOOD SPECIMEN / Unknown Butterfly / Unknown 04/03/2024 5:00 PM CDT 04/03/2024 5:07 PM CDT Valery Duckworth NP CHEMISTRY [facility] [address] [address], * PROTIME-INR (04/03/2024 5:00 PM CDT) INR 1.1 <1.3 04/03/2024 5:30 PM CDT [facility] PROTIME 11.8 10.3 - 12.3 sec 04/03/2024 5:30 PM CDT [facility] Blood BLOOD SPECIMEN / Unknown Butterfly / Unknown 04/03/2024 5:00 PM CDT 04/03/2024 5:07 PM CDT Narrative [facility] - 04/03/2024 5:30 PM CDT ?Therapeutic Range [...] on UFH. Valery Salty Duckworth NP HEMATOLOGY [facility] [address] [place] [address], * ECHO TTE COMPLETE WO CONTRAST (04/03/2024 11:17 AM CDT) AORTIC VALVE MEAN PG 14 mmHg EJECTION FRACTION 67 % LVEDD 3.8 cm Anatomical Region Laterality Modality Ultrasound 04/03/2024 10:1 8 AM CDT Narrative 04/03/2024 11:33 AM CDT ECHOCARDIOGRAM ANISA HUANG ?Accession#: ?? [id number] : ?1945 78 years Study Date: ?? 04/03/2024 10:18:59 AM Gender: M ? BP: ? 163/89 mmHg Height: 182.00 cm ? BSA: ?2.29 m? ? ? Weight: 108.00 kg ? Tech: ? MH ?Referring MD: SUSAN GUZMÁN Site: ? [facility] Reading Location: [facility] Patient Location: [...] . This study was interpreted by an [facility] accredited facility. ??Final ?? Procedure Note Rajinder Phan MD - 04/03/2024 ECHOCARDIOGRAM ANISA HUANG : 1945 78 years Study Date: 04/03/2024 10:18:59 AM Gender: M BP: 163/89 mmHg Height: 182.00 cm BSA: 2.29 m? ? ? Weight: 108.00 kg Tech: MH Referring MD: SUSAN GUZMÁN Site: [facility] Reading Location: [facility]W IP Patient [...] . This study was interpreted by an [facility] accredited facility. Final Susan Guzmán MD ECHO ORD * (ABNORMAL) LIPID PANEL (04/03/2024 6:34 AM CDT) [facility] Signature CHOLESTEROL,TOTAL 127 100 - 199 mg/dL 04/03/2024 3:[address] [facility] Comment: Cholesterol, Total Reference Ranges Desirable <200 mg/dL Borderline 200-239 mg/dL High >=240 mg/dL TRIGLYCERIDES 212(H) <150 mg/dL 04/03/2024 3:17 PM T [facility] HDL CHOLESTEROL 37(L) >40 mg/dL 3:17 PM [facility] NON-HDL CHOLESTEROL 90 <145 mg/dl 04/03/2024 3:17 PM CDT [facility] CHOL/HDL RATIO 3.43 <4.50 04/03/2024 3:17 PM CDT [facility] LDL CHOLESTEROL 48 <=130 mg/dL 04/03/2024 3:17 PM CDT [facility] VLDL CHOLESTEROL 42(H) <=30 mg/dL 04/03/2024 3:17 PM CDT [facility] Blood BLOOD SPECIMEN / Unknown Venipuncture / Unknown 04/03/2024 6:34 AM CDT 04/03/2024 6:55 AM CDT Valery Duckworth NP CHEMISTRY [facility] [address] [place] [address], * SCAN-CARDIAC STRIP (04/03/2024 1:11 AM CDT) Scanner OTHER * SCAN-CARDIAC STRIP (04/02/2024 6:35 PM CDT) Scanner OTHER * (ABNORMAL) TROPONIN T (HS) ONE TIME (04/02/2024 5:01 PM CDT) TROPONIN T HS 278(H) 6-15 ng/L ng/L 04/02/2024 5:47 PM CDT [facility] Blood BLOOD SPECIMEN / Unknown Non-Lab Venipuncture / Unknown 04/02/2024 5:01 PM CDT 04/02/2024 5:11 PM CDT Narrative [facility] - 04/02/2024 5:47 PM [...] department patient population. Susan Guzmán MD [facility]MISTRY [facility] [address] [place] [address], * (ABNORMAL) CBC with Platelets no Differential (04/02/2024 5:01 PM CDT) Pathologist [facility] WHITE BLOOD COUNT 10.3 4.5 - 11.0 thou/cu mm 04/02/2024 5:21 PM CDT [facility] RED BLOOD COUNT 5.66 4.30 - 5.90 mil/cu mm 04/02/2024 5:21 PM CDT [facility] HEMOGLOBIN 16.7 13.5 - 17.5 g/dL 04/02/2024 5:21 PM CDT [facility] HEMATOCRIT 49.3 37.0 - 53.0 % 04/02/2024 5:21 PM CDT [facility] MCV 87 80 - 100 fL 04/02/2024 5:21 PM CDT [facility] MCH 29.5 26.0 - 34.0 pg 04/02/2024 5:21 PM CDT [facility] MCHC 33.9 32.0 - 36.0 g/dL 04/02/2024 5:21 PM CDT [facility] RDW 12.8 11.5 - 15.5 % 04/02/2024 5:21 PM CDT [facility] PLATELET COUNT 218 140 - 440 thou/cu mm 04/02/2024 5:21 PM CDT [facility] MPV 12.0(H) 6.5 - 11.0 fL 04/02/2024 5:21 PM CDT [facility] NRBC 0.0 % 04/02/2024 5:21 PM CDT [facility] ABS NRBC 0.0 thou /cu mm 04/02/2024 5:21 PM CDT [facility] Blood BLOOD SPECIMEN / Unknown Non-Lab Venipuncture / Unknown 04/02/2024 5:01 PM CDT 04/02/2024 5:11 PM CDT Anna Cook NP HEMATOLOGY [facility] [address] [place] [address], * Sodium (04/02/2024 5:01 PM CDT) SODIUM 138 136 - 145 mmol/L 04/02/2024 5:51 PM CDT [facility] Blood BLOOD SPECIMEN / Unknown Non-Lab Venipuncture / Unknown 04/02/2024 5:01 PM CDT 04/02/2024 5:11 PM CDT Anna Cook NP CHEMISTRY [facility] [address] [place] [address], * Potassium (04/02/2024 5:01 PM CDT) POTASSIUM 3.8 3.5 - 5.1 mmol/L 04/02/2024 5:51 PM CDT [facility] Blood BLOOD SPECIMEN / Unknown Non-Lab Venipuncture / Unknown 04/02/2024 5:01 PM CDT 04/02/2024 5:11 PM CDT Anna Cook [facility] CHEMISTRY [facility] [address] [place] [address], from Last 3 Months Advance Directives * Full Code (Latest Code Status on File) Date Activated Date Inactivated Comments 04/02/2024 4:50 PM 04/06/2024 1:50 PM Question Answer Comments Code Status Discussion: Reviewed Preferences Care Teams County Director Relationship Specialty Start Date End Date [place]iam Mcfadden [place] [address] [place] [address] PCP - General Family Practice 09/17/21
--- OUTSIDE RECORDS SUMMARY | 2024-04-14 11:58 | XMS_ITS | Data Portability ---
Author Organization [facility], [facility] Address [address] [place] [address] Care Team Providers Care Button Spindler Name Role Phone MIRIAM MCFADDEN Primary Care Provider [phone] Assessment Encounter Date Assessment Date Assessment LastModified by Organization Details LastModified Time 04/22/2023 04/22/2023 77 year old male with small bilateral hydroceles and bilateral epididymal cysts. [email or web address] Not available 04/22/2023 13:50:26 Plan of Treatment Reminders Order Date Submit Date Provider Last Modified By Organization Details Last Modified Time Details Appointments None recorded. Lab urinalysis , dipstick 2022 023 [facility], [address], [address], [place], [address], 17:21:01 Referral None recorded. Procedures None recorded. Surgeries None recorded. Imaging None recorded. Medication Orders None recorded. Patient TargetsNo targets recorded. Patient Instructions Encounter Date Encounter Id Patient Instructions Last Modified By Organization Details Last Modified Time 04/22/2023 [id number] Hydroceles: We discussed the natural history of [...] structures (spermatic vessels/vas deferens/epididymi s/testis), anesthetic risks (DVT/PE/CVA/OR), and recurrence. He will plan to monitor [...] uriscan NEGATI VE negati ve Not Available [facility] [address] [facility] [address], [place], [address], 04/22/2023 17:21:01 04/22/20 23 04/22/2023 UA WITHO UT MICRO - CS URISC AN bilirubin - uriscan NEGATI VE mg/dL negati ve Not Available [facility] [address] [facility] [address], [place], [address], 04/22/2023 17:21:01 04/22/20 23 04/22/2023 UA WITHO UT MICRO - CS URISC AN urobilinogen - uriscan NORMAL mg/dL normal Not Available [facility] [address] [facility] [address], [place], [address], 04/22/2023 17:21:01 04/22/20 23 04/22/2023 UA WITHO UT MICRO - CS URISC AN ketones - uriscan 5 mg/dL negati ve abnormal Not Available [facility] [address] [facility] [address], [place], [address], 04/22/2023 17:21:01 04/22/20 23 04/22/2023 UA WITHO UT MICRO - CS URISC AN protein - uriscan NEGATI VE mg/dL negati ve Not Available [facility] [address] [facility] [address], [place], [address], 04/22/2023 17:21:01 04/22/20 23 04/22/2023 UA WITHO UT MICRO - CS URISC AN nitrites - uriscan NEGATI VE negati ve Not Available [facility] [address] [facility] [address], [place], [address], 04/22/2023 17:21:01 04/22/20 23 04/22/2023 UA WITHO UT MICRO - CS URISC AN glucose - uriscan NEGATI VE mg/dL negati ve Not Available [facility] [address] [facility] [address], [place], [address], 04/22/2023 17:21:01 04/22/20 23 04/22/2023 UA WITHO UT MICRO - CS URISC AN pH - uriscan 5.00 5.00-9 .00 Not Available [facility] [address] [facility] [address], [place], [address], 04/22/2023 17:21:01 04/22/20 23 04/22/2023 UA WITHO UT MICRO - CS URISC AN sp. gravity - uriscan 1.03 1.01-1 .03 Not Available [facility] [address] [place] [address] [address], [place], [address], 04/22/2023 17:21:01 04/22/20 23 04/22/2023 UA WITHO UT MICRO - CS URISC AN leukocytes - uriscan NEGATI VE negati ve Not Available [facility] [address] [place] [address], [place], [address], 04/22/2023 17:21:01 04/22/20 23 04/22/2023 UA WITHO UT MICRO - CS URISC AN color - uriscan YELLOW lt. yellow ;yello w Not Available [facility] [address] [place] [address], [place], [address], 04/22/2023 17:21:01 04/22/20 23 04/22/2023 UA WITHO UT MICRO - CS URISC AN clarity - uriscan VERY CLOUDY clear abnormal Not Available [facility] [address] [facility] [address], [place], [address], 04/22/2023 17:21:01 04/22/20 23 04/22/2023 UA WITHO UT MICRO - CS URISC AN total urine volume (mL) 20 /mL Not Available [facility] [address], [place], [address], 04/22/2023 17:21:01 Result Notes None recorded. Medical [...] recombinant, quadrivalent, PF 07/15/2019 completed CLARIBEL Neff [facility] 05/07/2023 15:22:36 Influenza, high-dose, quadrivalent, PF 07/15/2022 completed CLARIBEL [facility] 05/07/2023 15:22:36 Influenza, high-dose, quadrivalent, PF 07/26/2020 completed Rachael Ramirez null, [facility] 05/07/2023 15:22:36 Influenza, high-dose, quadrivalent, PF 07/30/2021 completed Rachael Ramirez null, [facility] 05/07/2023 15:22:36 COVID-19, mRNA, LNP-S, PF, 30 mcg/0.3 mL dose 11/09/2020 completed Rachael Ramirez null, [facility] 05/07/2023 15:22:36 COVID-19, mRNA, LNP-S, PF, 30 mcg/0.3 mL dose 11/30/2020 completed Rachael Ramirez null, [facility] 05/07/2023 15:22:36 COVID-19, mRNA, LNP-S, PF, 30 mcg/0.3 mL dose 07/17/2021 completed Rachael Charlesand null, [facility] 05/07/2023 15:22:36 COVID-19, mRNA, LNP-S, PF, 30 mcg/0.3 mL dose, fina-sucrose 02/06/2022 completed Rachael Ramirez null, [facility] 05/07/2023 15:22:36 COVID-19, mRNA, LNP-S, bivalent, PF, 30 mcg/0.3 mL dose 03/28/2023 completed Rachael Ramirez null, [facility] 05/07/2023 15:22:36 COVID-19, mRNA, LNP-S, bivalent, PF, 30 mcg/0.3 mL dose 07/15/2022 completed Rachael Ramirez null, [facility] 05/07/2023 15:22:36 pneumococcal polysaccharide PPV23 06/01/2018 completed Rachael Ramirez null, [facility] 05/07/2023 15:22:36 Tdap 11/04/2017 completed Rachael Ramirez null, [facility] 05/07/2023 15:22:36 Pneumococcal conjugate PCV 13 03/23/2015 completed Rachael Ramirez null, [facility] 05/07/2023 15:22:36 Influenza, high-dose, trivalent, PF 06/30/2017 completed Rachael blood [facility] 05/07/2023 15:22:36 Influenza, high-dose, trivalent, PF 07/21/2018 completed Rachael blood [facility] 05/07/2023 15:22:36 Influenza, high-dose, trivalent, PF 08/03/2015 completed Rachael blood [facility] 05/07/2023 15:22:36 Influenza, high-dose, trivalent, PF 08/27/2016 completed Rachael blood [facility] 05/07/2023 15:22:36 Past Encounters Encounter ID Performer Location Encounter Start Date Encounter Closed Date Diagnosis/Indication Diagnosis SNOMED-CT Code [id number] Tera Amin MD [facility] [address] [place] [address] 04/22/2023 08:40:17 04/22/2023 14:44:26 Hydrocele of testis [id number] Cyst of epididymis 56838 002 Health Concerns Section Related Observation LastModified by Organization Detai ls LastModified Time None Recorded Concern Status LastModified by Organization Details LastModified Time None Recorded Advance Directives Directive None Recorded Payers Encounter Date Sequence Insurance Name Policy Number Policy Hough Covered Member ID Hough Member ID Guarantor Name 04/22/2023 1 [employer] - GOLD CHOICE (MEDICARE REPLACEMENT PPO) [id number] Adryan Gamble [id number] Adryan Gamble Notes Date Note Type Note [...] gotten a bit smaller. Tera Amin MD [address] [place] [address],[address], [place], [address], [facility] 04/22/2023 14:25:21
--- OUTSIDE RECORDS SUMMARY | 2024-04-14 11:58 | XMS_ITS | Referral Summary ---
Author Organization [facility] Address [address] [place] [address] Care Team Providers Care Travel Rn Or Name Role Phone Ritchie Mcfadden MD Primary Care Provider [phone] Allergies No known active allergies Medications Medication [...] diabetes mellitus with hyperosmolarity without coma, unspecified fdc insulin use status Use to calibrate blood glucose monitor as directed. 1 each 02/20/2018 Active blood glucose monitoring (NO BRAND SPECIFIED) meter device kitIndications:Type 2 diabetes mellitus with hyperosmolarity without coma, unspecified fdc insulin use status Use to test blood sugar 4 times daily or as directed. 1 kit 02/20/2018 Active blood glucose (NO BRAND SPECIFIED) lancets standardIndications:T ype 2 diabetes mellitus with hyperosmolarity without coma, unspecified fdc insulin use status Use to test blood sugar 4 times daily or as directed. 100 each 11 02/20/2018 Active blood glucose monitoring (NO BRAND SPECIFIED) test stripIndications:Type 2 diabetes mellitus with hyperosmolarity without coma, unspecified fdc insulin use status Use to test blood sugars 4 times daily or as directed 100 strip 1 02/20/2018 Active hydrochlorothiazide (MICROZIDE) 12.5 MG capsuleIndications:Be nign essential hypertension Take 1 capsule (12.5 mg) by mouth daily 30 capsule 02/21/2018 Active insulin glargine (LANTUS SOLOSTAR) 100 UNIT/ML penIndications:Type 2 diabetes mellitus with hyperosmolarity without coma, unspecified computer terminal operator insulin use status Inject 15 Units Subcutaneous [...] Advance Directives For more information, please contact: [phone] * Full Code (Latest Code Status on File) Date Activated Date Inactivated Comments 02/20/2018 5:38 PM 02/21/2018 7:58 PM Care Teams Travel Rn Or Relationship Specialty Start Date End Date Ritchie Mcfadden MD [facility] [address] [place] [address] PCP - General Family Practice 02/21/18
--- NOTE | 2024-04-14 12:15 | CRLHL7_ITS ---
For Patients: As a result of the Century Cures Act, medical imaging exams and procedure reports are released immediately into your electronic medical record. You may view this report before your referring provider. If you have questions, please contact your health care provider. Indication: PAIN, edema, INFLAMMATION Technique: Real-time longitudinal and transverse sonographic grayscale imaging with and without compression, as well as color and duplex Doppler imaging before and after augmentation, was obtained of the deep system of the left upper extremity, including the internal jugular, subclavian, axillary, and brachial veins. The basilic and cephalic veins were also evaluated. Comparison: None. Findings: Internal jugular vein: No evidence of thrombus. Subclavian vein: No evidence of thrombus. Axillary vein: No evidence of thrombus. Brachial vein: No evidence of thrombus. Cephalic vein: Thrombus is seen. Basilic vein: Patent. Impression: 1. No ultrasound evidence of deep venous thrombosis. 2. Superficial venous thrombus is seen in the left cephalic vein. Dictated by Oleg Barry MD @ 04/14/2024 12:37:22 PM (Electronically Signed)
== END 2024-04-14 11:56 | disposition home or self-care (01) ==
LOC: US 11:56
PROVIDERS: PCP Family Medicine; Visit Provider Family Medicine
DX: M79.602 Pain in left arm (principal); R60.0 Localized edema
CPT/HCPCS: 93971

== ENCOUNTER 2024-09-28 04:24 | Emergency (ER) | payer OTHER, SELFPAY ==
[2024-09-28 05:13] VITALS: BP 136/84; PULSE 66; RESP 16; TEMP 36.5; O2SAT 94; BMI 37.3
--- NOTE | 2024-09-28 07:07 | ED.GENADULT ---
HPI - General Adult General Chief complaint: Laceration/Wound Stated complaint: earlobe won't stop bleeding, on bloodthinners Time Seen by Provider: 09/28/24 05:49 Source: patient Mode of arrival: ambulatory Limitations: no limitations History of Present Illness HPI narrative: 79-year-old male presents to the emergency department in the wee hours of the morning with a laceration to the earlobe that is been bleeding since 05/11 the previous morning, as in about 21 hours ago. He cut this while shaving and takes Plavix. Tried applying a Band-Aid but it keeps oozing at times. It is hemostatic here in triage. No fever, no other areas of bleeding, feeling otherwise well, has no other complaints that he wants investigated today. ROS is notable for the bleeding of the left earlobe only. No oral bleeding, other areas of bleeding, recent injury or trauma otherwise. He states that all of his other medical problems are stable and he has no other acute concerns. He admits he feels guilty for coming in, he assumed it would not be busy and it is a madhouse here. Related Data Home Medications ?Medication ?Instructions ?Recorded ?Confirmed timolol maleate 0.5 % eye drops drp ophthalmic (eye) 04/16/23 07/16/24 isosorbide mononitrate 30 mg 30 mg PO DAILY 04/09/24 07/16/24 tablet,extended release 24 hr nitroglycerin 0.4 mg sublingual mg sublingual 04/09/24 07/16/24 tablet ticagrelor 90 mg tablet (Brilinta) 90 mg PO BID 04/09/24 07/16/24 aspirin 81 mg chewable tablet 1 tab PO QDAY 07/16/24 07/16/24 Previous Rx's ?Medication ?Instructions ?Recorded nystatin 100,000 unit/gram topical 1 applic topical .2-3X/Day PRN 09/26/22 cream rash #30 grams losartan 100 mg tablet 100 mg PO QDAY #90 tabs 11/10/23 pen needle, diabetic 31 gauge x #100 ea 12/22/2302/25 (UltiCare Pen Needle) insulin glargine 100 unit/mL (3 8 unit (0.08 mL) subcut QPM #15 mL 03/30/24 mL) subcutaneous pen (Lantus Solostar U-100 Insulin) amlodipine 10 mg tablet 10 mg PO QDAY #90 tabs 04/09/24 rosuvastatin 20 mg tablet 20 mg PO QDAY #90 tabs 04/09/24 carvedilol 6.25 mg tablet 6.25 mg PO BID #180 tabs 04/12/24 cetirizine 10 mg tablet (Zyrtec) 10 mg PO QDAY PRN congestion #90 07/16/24 tabs semaglutide 3 mg tablet (Rybelsus) 3 mg PO QDAY 30 days #30 tabs 07/16/24 finasteride 5 mg tablet 5 mg PO QDAY #90 tabs 09/01/24 Allergies Allergy/AdvReac Type Severity Reaction Status Date / Time No Known Drug Allergies Allergy Verified 07/16/24 08:56 [facility] Medical History CAD (coronary artery disease) ?I25.10 - Atherosclerotic heart disease of [place] coronary artery without angina pectoris (ICD-10) Medicare annual wellness visit, subsequent ?Z00.00 - Encounter for general adult medical examination without abnormal findings (ICD-10) Actinic keratosis ?L57.0 - Actinic keratosis (ICD-10) BPH associated with nocturia ?N40.1 - Benign prostatic hyperplasia with lower urinary tract symptoms (ICD-10) ?R35.1 - Nocturia (ICD-10) Surgical History History of incision and drainage (08/06/15) ?Z98.890 - Other specified postprocedural states (ICD-10) History of colonoscopy with polypectomy ?Z98.890 - Other specified postprocedural states (ICD-10) ?Z86.010 - Personal history of colonic polyps (ICD-10) History of colonoscopy ?Z98.890 - Other specified postprocedural states (ICD-10) Social History Smoking Status: Never smoker Do you use any of these nicotine containing products: None Second hand tobacco smoke exposure: No How often do you have a drink containing alcohol: never AUDIT-C Alcohol total score: 0 Non-prescribed substance use: denies use service: No Exam Const: Vital Signs, click to edit/add: Vital Signs - 24 hr 09/28/24 05:13 Temperature 97.7 F Pulse Rate [Pulse Oximeter] 66 Respiratory Rate 16 Blood Pressure [Ri ght Upper Arm] 136/84 Pulse Oximetry 94 Oxygen Delivery Me thod Room Air Documenting provider has reviewed patient's vital signs: yes Common normals: no apparent distress General appearance: cooperative, comfortable and well kempt HENMT: Common normals: normocephalic Head and scalp: normocephalic Mouth: oral and palatal mucosa normal Throat: posterior oropharynx normal Other: Left ear canal normal in appearance. The bottom of the left earlobe has a 1 cm long by 5 mm wide sliced area consistent with razor. It is partially clotted over but has an open area posteriorly that is oozing very slightly. Clot does not seem to want to adhere well. No other areas of injury appreciated. Eye: Common normals: conjunctivae normal General eye: normal appearance of both eyes Conjunctiva: conjunctiva(e) normal Resp: Common normals: normal respiratory effort Effort & inspection: able to speak in complete sentences Psych: Appearance: well kempt Attitude: engaged Mood and affect: euthymic mood Insight: insight good Judgement: judgment good Course Course ED Course: Small laceration to the left ear lobe, bleeding mostly due to gravity and Plavix use. No signs of infection. Area is cleansed with soap and tap water, no signs of foreign body. Covered in Dermabond with good hemostasis. Patient counseled on care. Does need apply any special dressing or ointment. Dermabond will flake off on its own in a few days. Any severe bleeding, signs infection would warrant re-evaluation. Ask if he has other concerns that he would like to address today and he declines this. Short visit today. Vital Signs Vital signs: Initial Vital Signs Temperature 97.7 F 09/28/24 05:13 Temperature Source Temporal Artery Scan 09/28/24 05:13 Pulse Rate 66 09/28/24 05:13 Respiratory Rate 16 09/28/24 05:13 Blood Pressure 136/84 09/28/24 05:13 Blood Pressure Mean 101 09/28/24 05:13 Blood Pressure Position Sitting 09/28/24 05:13 Pulse Oximetry 94 09/28/24 05:13 Oxygen Delivery Method Room Air 09/28/24 05:13 Vital Signs Temperature 97.7 F 09/28/24 05:13 Pulse Rate 66 09/28/24 05:13 Respiratory Rate 16 09/28/24 05:13 Blood Pressure 136/84 09/28/24 05:13 Pulse Oximetry 94 09/28/24 05:13 Oxygen Delivery Method Room Air 09/28/24 05:13 Temperature 97.7 F 09/28/24 05:13 Pulse Rate 66 09/28/24 05:13 Respiratory Rate 16 09/28/24 05:13 Blood Pressure 136/84 09/28/24 05:13 Pulse Oximetry 94 09/28/24 05:13 Oxygen Delivery Method Room Air 09/28/24 05:13 Discharge Plan Discharge Clinical Impression: Laceration of left earlobe Patient Disposition: Home, Self-Care Condition: Improved Instructions: Facial Laceration (ED) Additional Instructions: As we discussed, the simple cut on your ear lobe will likely rebleed with facial movement or hitting it on the collar of your jacket. Because of this, I have covered it with a special medical grade glue that will help the clot at hear better and prevent repeat bleeding. This will flake off naturally on its own in a week or so. You may shower with it in place, wash her hair as normal and perform all of your usual activities. You do not need to cover it with any type of dressing or apply any type of ointment. If it shows any signs of infection in a few days or has persistent bleeding, please follow-up in the clinic or emergency department if needed. Continue taking your blood thinners as normal. Activity Level: No Restrictions Prescriptions: No Action aspirin 81 mg tablet,chewable 1 tab PO QDAY Brilinta 90 mg tablet 90 mg PO BID nitroglycerin 0.4 mg tablet, sublingual sublingual isosorbide mononitrate 30 mg tablet extended release 24 hr 30 mg PO DAILY amlodipine 10 mg tablet 10 mg PO QDAY Qty: 90 3RF rosuvastatin 20 mg tablet 20 mg PO QDAY Qty: 90 3RF nystatin 100,000 unit/gram cream 1 applic topical .2-3X/Day PRN (Reason: rash) Qty: 30 1RF timolol maleate 0.5 % drops ophthalmic (eye) cetirizine [Zyrtec] 10 mg tablet 10 mg PO QDAY PRN (Reason: congestion) Qty: 90 1RF Rybelsus 3 mg tablet 3 mg PO QDAY 30 Days Qty: 30 3RF losartan 100 mg tablet 100 mg PO QDAY Qty: 90 3RF (DME) pen needle, diabetic [UltiCare Pen Needle] 31 gauge x 5/16 needle See Rx Instructions .Route Qty: 100 3RF Rx Instructions: test once daily insulin glargine [Lantus Solostar U-100 Insulin] 100 unit/mL (3 mL) insulin pen 8 unit subcut QPM Qty: 15 0RF carvedilol 6.25 mg tablet 6.25 mg PO BID Qty: 180 1RF finasteride 5 mg tablet 5 mg PO QDAY Qty: 90 1RF Follow Up/Referrals: Ritchie Mcfadden MD [Primary Care Provider] - Stand Alone Forms: [facility] Info Instructions
== END 2024-09-28 06:24 | disposition home or self-care (01) ==
PROVIDERS: Emergency Provider Family Medicine; PCP Family Medicine
DX: S01.312A Laceration without foreign body of left ear, initial encounter (principal); W26.9XXA Contact with unspecified sharp object(s), initial encounter
CPT/HCPCS: 12011; 99282

== ENCOUNTER 2024-10-19 08:17 | Outpatient (CLI) | payer MEDICARE, SELFPAY | END 2024-10-19 08:18 | disposition home or self-care (01) | LOC: NFLDREF 10-20 01:39 | PROVIDERS: PCP Family Medicine; Referring Provider Family Medicine; Visit Provider Family Medicine | DX: E78.5 Hyperlipidemia, unspecified (principal); I25.10 Atherosclerotic heart disease of native coronary artery without angina pectoris | CPT/HCPCS: 80061 ==

== ENCOUNTER 2025-01-18 08:07 | Outpatient (CLI) | payer MEDICARE, SELFPAY | END 2025-01-18 08:08 | disposition home or self-care (01) | PROVIDERS: PCP Family Medicine; Visit Provider Family Medicine | DX: E11.65 Type 2 diabetes mellitus with hyperglycemia (principal); I10 Essential (primary) hypertension; Z79.85 Long-term (current) use of injectable non-insulin antidiabetic drugs; Z79.4 Long term (current) use of insulin; Z13.21 Encounter for screening for nutritional disorder; Z13.29 Encounter for screening for other suspected endocrine disorder | CPT/HCPCS: 82043; 82570; 82607; 84443 ==

== ENCOUNTER 2025-02-01 07:09 | Outpatient (CLI) | payer MEDICARE, SELFPAY ==
--- NOTE | 2025-02-01 07:15 | CRLHL7_ITS ---
For Patients: As a result of the Century Cures Act, medical imaging exams and procedure reports are released immediately into your electronic medical record. You may view this report before your referring provider. If you have questions, please contact your health care provider. CLINICAL HISTORY: Other amnesia TECHNIQUE: The carotid circulations and the vertebral arteries in the neck were examined with multani-scale ultrasound, color-flow and Doppler spectral analysis. Degrees of stenosis were determined using SRU 2002 Consensus Panel Criteria. FINDINGS: Sonographic images demonstrate bilateral atherosclerotic plaque formation without suspicious soft tissue mass. There was antegrade blood flow demonstrated within the vertebral arteries and the subclavian arteries demonstrated a normal triphasic waveform. The spectral Doppler tracings of the common carotid, internal and external carotid arteries demonstrate no abnormal turbulence or spectral broadening. There was no significant elevation of peak systolic blood flow which would indicate a hemodynamically-significant stenosis by SRU criteria. The ICA/CCA peak systolic velocity ratio measures 0.9 on the right and 1.1 on the left. IMPRESSION: Less than 50 percent stenosis of the internal carotid arteries bilaterally. Dictated by Rajinder Ahuja MD @ 02/01/2025 9:46:20 AM (Electronically Signed)
--- NOTE | 2025-02-01 08:15 | CRLHL7_ITS ---
For Patients: As a result of the Century Cures Act, medical imaging exams and procedure reports are released immediately into your electronic medical record. You may view this report before your referring provider. If you have questions, please contact your health care provider. Indication: Memory loss. Technique: Multiplanar, multisequence MRI of the brain was performed without intravenous contrast. Comparison: None relevant available. Findings: Slight thinning of the corpus callosum. The pituitary gland and clivus appear intact. Mild degenerative change visualized upper cervical spine. There is no restricted diffusion. Few small scattered chronic microhemorrhages within the brain parenchyma. The ventricles are proportionate to the cerebral sulci. The 4th ventricle appears midline. The basal cisterns appear patent. No abnormal extra-axial fluid collection identified. Mild parenchymal volume loss. Scattered T2 FLAIR hyperintense foci within the subcortical and periventricular white matter, favored to represent chronic ischemic microvascular disease. Scattered small chronic lacunar infarcts within the bilateral centrum semiovale and left basal ganglia. There is no intracranial mass, abnormal mass-effect or midline shift identified. Major intracranial vascular flow voids appear grossly intact. Thinning of the ocular lenses. Impression: 1. No acute intracranial process. 2. Moderate chronic ischemic microvascular disease. 3. Small scattered chronic lacunar infarcts bilateral centrum semiovale and left basal ganglia. 4. Few small scattered chronic microhemorrhages within the brain parenchyma. Dictated by Bert Feliz MD @ 02/01/2025 11:30:06 AM (Electronically Signed)
== END 2025-02-01 07:10 | disposition home or self-care (01) ==
LOC: US 07:09
PROVIDERS: PCP Family Medicine; Visit Provider Family Medicine
DX: R41.3 Other amnesia (principal); I65.23 Occlusion and stenosis of bilateral carotid arteries; I25.10 Atherosclerotic heart disease of native coronary artery without angina pectoris; I63.81 Other cerebral infarction due to occlusion or stenosis of small artery; E11.9 Type 2 diabetes mellitus without complications; I10 Essential (primary) hypertension
CPT/HCPCS: 70551; 93880

== ENCOUNTER 2025-05-05 08:14 | Outpatient (CLI) | payer MEDICARE, SELFPAY | END 2025-05-05 08:15 | disposition home or self-care (01) | PROVIDERS: PCP Family Medicine; Visit Provider Family Medicine | DX: E78.5 Hyperlipidemia, unspecified (principal); I10 Essential (primary) hypertension; Z12.5 Encounter for screening for malignant neoplasm of prostate | CPT/HCPCS: 80053; G0103 ==

== ENCOUNTER 2025-08-25 08:05 | Outpatient (CLI) | payer MEDICARE, SELFPAY | END 2025-08-25 08:06 | disposition home or self-care (01) | LOC: NFLDREF 08-30 21:06 | PROVIDERS: PCP Family Medicine; Referring Provider Family Medicine; Visit Provider Family Medicine | DX: E78.5 Hyperlipidemia, unspecified | CPT/HCPCS: 80061 ==